=== PATIENT | male | born 1970 | race Caucasian/White ===

== ENCOUNTER 2020-10-12 14:47 | Inpatient (IN) | payer BC ==
--- OUTSIDE RECORDS SUMMARY | 2020-10-12 14:50 | XMS REPORT | Continuity of Care Document ---
:[address] [facility] t Address [address] [place] [address] Care Team Providers Name Role Phone Layne Gee MD Primary Care Physician Jakob ROBBINS Attending Clinician Rosangela SLAUGHTER Attending Clinician Unavailable Milton Hamm MD Attending Clinician Tess Liriano MD Attending Clinician Tiffany Jerez NP Attending Clinician MD Mukesh ROBERT Attending Clinician Unavailable Marleny Gutierrez RN Attending Clinician Unavailable Akilah Cortes MD Attending Clinician Jackie Blackmon MD Attending Clinician MADONNA Admitting Clinician Unavailable MD Floresita THORNTON Admitting Clinician Unavailable Payers Payer Name Policy Type Policy Effective Date Expiration Date [facility] ce Number [id number] CHOICE 2006 [place] PPO/FEDERAL 001 00:00:00 [employer] PPOxxxxxxxxxxx4 -Pr esentPPO Problems Condition Condition Condition Status Onset Resolution Last Treating Co mments Source Name Details Category Date Date Treatment Clinician Date Prostate Prostate Disease Active [place] cancer cancer 06-17 Method[facility] 00:00: st 00 Malignant Malignant Disease Active Overview: [place] neoplasm neoplasm 05-22 Formattin Met [facility] of of 00:00: g of this st prostate prostate 00 note might be different from the original. Added automatic ally from request for surgery [id number] Allergies, Adverse Reactions, Alerts This patient has no known allergies or adverse reactions. Family History Family Member Diagnosis Comments Start Date Stop Date Source Natural father Alzheimer's disease H orlando Wilson Natural mother Cancer [facility] thodist Social History Social Habit Start Date Stop Date Quantity [facility] Std Drinks [facility] Alcohol Binge Tobacco use and 2020-06-20 2020-06-[address] [facility] ethodist exposure 00:00:00 00:00:00 Alcohol intake 2020-06-20 2020-06-20 Lifetime [facility] thodist 00:00:00 00:00:00 non-drinker (finding) History SDOH 2020-04-18 2020-04-18 1 [place] Meth odist Alcohol Frequency 00:00:00 00:00:00 Sex Assigned At [address] [facility] ethodist 00:00:00 00:00:00 Smoking Status Start Date Stop Date Source Never smoker [place] Methodis t Medications Ordered Filled Start Stop Current Ordering Indication Dosage Frequency Signature Comments Components Source Medication Medication Date Date Medication? Clinician (SIG) Name Name tadalafiL 2020- No 5mg Q24H Take 1 [place] (CIALIS) 5 06-25-06 tablet (5 Met hodi MG tablet 00:00: 23:59 mg total) st 00 :00 by mouth daily as needed for erectile dysfunctio n for up to 30 days. HYDROcodone 2020- No acute pain 1{tbl} Q6H Take 1 [place] -acetaminop 06-25-06 tablet by Ok thodi hen (NORCO) 00:00: 23:[address] 7.5-325 mg 00 :00 every 6 per tablet (six) hours as needed for moderate pain for up to 30 days .acute pain. Max Daily Amount: 4 tablets losartan Yes Ty (Cozaar) 3-31 Method[facility] 100 MG 13:15: st tablet 29 atorvastati Yes Abdelrahmanto n n (LIPITOR) 3-31 [facility] 40 mg 13:15: st tablet 29 metoprolol Yes [place] tartrate 3-31 [facility] (LOPRESSOR) 13:15: st 25 mg 29 tablet levothyroxi Yes Estuardo moreno ne 06-19 [facility] (SYNTHROID) 13:15: st 175 mcg 29 tablet sennosides- 2020- No 1{tbl} QD Take 1 [place] docusate 06-19 tablet by Metho di sodium 00:00: 23:[address] (Senna with 00 :00 daily for Docusate 30 days. Sodium) 8.6-50 mg per tablet HYDROcodone 2020- acute pain 1{tbl} Q6H Take 1 [place] -acetaminop 06-19 tablet by krystina satya (NORCO) 00:00: 23:[address] 5-325 mg 00 :00 every 6 per tablet (six) hours as needed for moderate pain for up to 7 days .acute pain. Max Daily Amount: 4 tablets Vital Signs Vital Name Observation Time Observation Value Comments Source Body temperature 2020-06-19 11:10:00 37.39 April Abdelrahman Wilson Systolic blood 2020-06-19 07:41:27 120 mm[Hg] Estuardo Wilson pressure Diastolic blood 2020-06-19 07:41:27 78 mm[Hg] Tarah Wilson pressure Heart rate 2020-06-19 07:41:27 75 /min Ty Wilson Respiratory rate 2020-06-19 07:41:27 20 /min Abdelrahman Wilson Oxygen saturation in 2020-06-19 07:41:27 94 /min Ty Wilson Arterial blood by Pulse oximetry Body height 2020-06-17 06:01:00 186.7 cm Ty Wilson Body weight 2020-06-17 06:01:00 97.523 kg Ty Wilson BMI 2020-06-17 06:01:00 27.98 kg/m2 Ty Wilson Procedures Procedure Date / Time Performed Performing Clinician [facility] e PROSTATE SPECIFIC ANTIGEN 2020-07-18 00:00:00 Bebo Robert CBC HEMOGRAM 2020-06-19 09:52:00 Lucie Hamm CBC HEMOGRAM 2020-06-19 05:46:00 Lucie Hamm BASIC METABOLIC PANEL 2020-06-19 05:46:00 Lucie Hamm ESTIMATED GFR 2020-06-19 05:46:00 Lucie Hamm HC COMPLETE BLD COUNT 2020-06-18 02:17:00 Lucie Hamm W/AUTO DIFF COMPREHENSIVE METABOLIC 2020-06-18 02:17:00 Lucie Hamm PANEL MAGNESIUM LEVEL 2020-06-18 02:17:00 Lucie Hamm PHOSPHORUS LEVEL 2020-06-18 02:17:00 Lucie Hamm ESTIMATED GFR 2020-06-18 02:17:00 Lucie Hamm HEMATOCRIT 2020-06-17 09:47:00 Bebo Robert HEMOGLOBIN 2020-06-17 09:47:00 Bebo Robert SURGICAL PATHOLOGY 2020-06-17 09:16:00 Lucie Hamm REQUEST [place] AN ELECTIVE 2020-06-17 07:23:00 Asa Liriano hodjorge ENDOTRACHEAL AIRWAY Tess [place]ENT[place] ROBOTIC ASSISTED 2020-06-17 07:11:00 Bebo Robert LAPAROSCOPIC PROSTATECTOMY W/BPLND ABO/RH 2020-06-17 06:00:00 Bebo Robert URINE CULTURE 2020-06-12 10:07:00 Magdi Thornton odjorge TYPE AND SCREEN 2020-06-12 09:15:00 Magdi Thornton BASIC METABOLIC PANEL 2020-06-12 08:48:00 Magdi Thornton ESTIMATED GFR 2020-06-12 08:48:00 Magdi Thornton URINALYSIS SCREEN AND 2020-06-12 08:48:00 Magdi Thornton MICROSCOPY, WITH REFLEX TO CULTURE CBC HEMOGRAM 2020-06-12 08:48:00 Magdi Thornton COVID-19 QUALITATIVE 2020-06-12 07:57:00 Magdi Thornton RT-PCR MRI PROSTATE WWO CONTRAST 2020-06-04 10:32:45 Bebo Robert Ho ju [facility] ESTIMATED GFR 2020-06-04 07:57:00 Bebo Robert Meth odist POC CREATININE 2020-06-04 07:57:00 Bebo Robert Meth odist NM BONE SCAN WHOLE BODY 2020-05-03 10:24:[address] ABDOMEN W WO CONTRAST 2020-05-03 08:28:36 Moris Blackmon PELVIS W WO CONTRAST Plan of Care Planned Activity Planned Date Details Comments Source Future Scheduled 2020-10-20 INFLUENZA VACCINE [place] [facility] 00:00:00 [code = INFLUENZA VACCINE] Future Scheduled 2020 COLONOSCOPY SCREENING [place] [facility] 00:00:00 [code = COLONOSCOPY SCREENING] Future Scheduled 2020 SHINGLES VACCINES [place] [facility] 00:00:00 (#1) [code = SHINGLES VACCINES (#1)] Future Scheduled 1988 Hepatitis C screening [place] [facility] 00:00:00 (procedure) [code = 868915906] Future Scheduled 1982 COVID-19 VACCINE (1) Kaylee ston [facility] Test 00:00:00 [code = COVID-19 VACCINE (1)] Encounters Start End Encounter Admission Attending Care Care Encounter Source Date/Time Date/Time Type Type Clinicians Facility Department ID 2020-07-24 2020-07-24 Outpatient EKERUO, [facility] [id number] [place] 00:00:00 00:00:00 BEBO [address] 2020-06-25 2020-06-25 Outpatient EKERUO, [facility] [id number] [place] 00:00:00 00:00:[address] BEBO [address] 2020-06-17 2020-06-19 Outpatient THAMPOE, [facility] [id number] [place] 00:00:00 00:00:00 LUCIE [address] 2020-06-12 2020-06-12 Outpatient EKERUO, [facility] [id number] [place] 00:00:00 00:00:00 BEBO [address] 2020-06-12 2020-06-12 Outpatient EKERUO, [facility] [id number] [place] 00:00:00 00:00:00 BEBO 176 Method i 2020-06-04 2020-06-04 Outpatient JAKOB [facility] [id number] [place] 00:00:00 00:00:00 BEBO 573 Method i 2020-05-22 2020-05-22 Outpatient AVINASH [facility] [id number] [place] 00:00:00 00:00:00 JAMIE 389 Method i 2020-05-03 2020-05-03 Outpatient TRUONG [facility] [id number] [place] 00:00:00 00:00:00 MORIS 497 Method i 2020-05-03 2020-05-03 Outpatient TRUONG [facility] [id number] [place] 00:00:00 00:00:00 MORIS 499 Method i 2020-05-03 2020-05-03 Outpatient TRUONG [facility] [id number] [place] 00:00:00 00:00:00 MORIS 498 Method i 2020-04-18 2020-04-18 Outpatient TRUONG [facility] [id number] [place] 00:00:00 00:00:00 MORIS 049 Method i Results Test Description Test Time Test Comments Results Result Comments Source Prostate specific antigen 2020-07-19 09:03:00 Test Item Value Reference Range Interpretation Comme nts PSA (test code = 0.1 ng/mL 0.0-4.0 Jackie ECLIA methodology.According 2857-1) to the [place] [employer], Se rum PSA shoulddecrease and remain at undetectable le vels after radicalprostate ctomy. The AUA defines biochem ical recurrence as an initialPSA v alue 0.2 ng/mL or greater followe d by a subsequent confirmatoryPSA value 0.2 ng/mL or greater.Valu es obtained with different assay methods or kits cannot be usedi nterchangeably. Results cannot be interpreted as absolute eviden ceof the presence or absence of m alignant disease. MANUELA (test code = Performed at: ) [facility] [id number] [place], [place] [id number] Director: Rafael Parks MD, Phone: [phone] Ty Smithurgical pathology [id number] 16:55:39 Test Item Value Reference Range Interpretation Comments Case number (test [id number] code = 2051759) Surgical pathology See link below for PDF report (test code = Lab Report 2255) Result status (test This is Supplemental code = 9782086) Report for [id number] [place] [id number] 07:23:00Giselle Elliott 06/17/2020 8:11 AMAirway Date/Time: 06/17/2020 7:23 AM Location: OR Performed by: other staffResident/LOOPER OPERATOR/AA: Higinio Watson CRNAOther Staff: Giselle ElliottAuthorized by: Asa Liriano MD Urgency: ElectiveDifficult Airway: No Preoxygenated with 100% O2: Yes C-spine Precautions Maintained Throughout: Yes Mask Ventilation: Easy maskFinal Airway Type: Endotracheal airwayFinal Endotracheal Airway: ETTCuffed: Yes Technique Used: Direct laryngoscopyDevices/Methods Used in Placement: Intubating styletInsertion Site: OralBlade Type: MillerLaryngoscopeBlade/Videolaryngoscope Blade Size: 2ETT Size (mm): 8.0Cuff at minimum occlusion pressure: Yes Measured from: LipsETT to Lips (cm): 24Placement Verified by: CO2 detection and direct visualization Laryngoscopic view: Grade IIa - partial view of glottisRapid Sequence Induction (RSI): No ModifiedRSI: No Number of Attempts at Approach: 1 Soft tissue and dentition remained intact, according to preoperative examination.Ty WilsonUrine [id number] 13:55:46 Test Item Value Reference Range Interpretation Comments Urine culture growth after Specimen isolate (test 24 hours InformationSpe [facility] code = 52716-7) Source: Urin eSpecimen Site: Clean cat ch [place] HckomxpiuHTHS-GqF-6 (COVID-19) RNA [Presence] in Respiratory specimen by FANNY with probe [id number] 19:20:48 Test Item Value Reference Range Interpretation Comments SARS-CoV-2 (COVID-19) RNA Not detected Not-Detected [Presence] in Respiratory specimen by FANNY with probe detection (test code = 61738-9) Urinalysis screen and microscopy, with reflex to [id number] 10:08:48 Test Item Value Reference Range Interpretation Comments Specimen site (test Clean catch code = 3598586) Color, UA (test code = Yellow 5778-6) Appearance, UA (test Sl Cloudy code = 5767-9) Specific gravity, UA 1.020 1.001-1.035 (test code = 5811-5) pH, UA (test code = 5.0 5.0-8.5 5803-2) Protein, UA (test code Negative Negative = 10895-2) Glucose, UA (test code Negative Negative = 56558-1) Ketones, UA (test code Negative Negative = 2514-8) Bilirubin, UA (test Negative Negative code = 5770-3) Blood, UA (test code = Negative Negative 5794-3) Nitrite, UA (test code Negative Negative = 5802-4) Urobilinogen, UA (test <2.0 <2.0 code = 43932-1) Leukocyte esterase, UA Negative Negative (test code = 5799-2) WBC, UA (test code = 6 See_Comment H [Autom ated 5821-4) message] The sy stem which generated this result transmitted reference range : 0 - 1 /HPF. The reference range was not used to interpret this result as normal/abnormal . RBC, UA (test code = None seen See_Comment [Autom ated 12934-3) message] The sy stem which generated this result transmitted reference range : 0 - 5 /HPF. The reference range was not used to interpret this result as normal/abnormal . Bacteria, UA (test code None seen None seen = 62728-5) Yeast, UA (test code = None seen 86397-2) Yeast with None seen pseudohyphae, UA (test code = 21024-9) Lab Interpretation Abnormal (test code = 98442-3) [facility] Prostate Wwo [id number] 22:02:21Hm Interface, Radiology Results 06/04/2020 10:05 PM CDT EXAMINATION: MRI PROSTATE WWO CONTRASTCLINICAL HISTORY: 49 years Male C61 Malignant neoplasm of prostate, prostate cancerCOMPARISON: None.TECHNIQUE: Using a pelvic phased array coil, multiplanar, multisequence MRI of the pelvis was performed with a prostate- specific protocol with and without contrast. Diffusion weighted images and dynamic contrast enhanced images were performed. The examination was performed using a 3T magnet. IMAGE QUALITY: The image quality is satisfactory.FINDINGS:1. Size: The prostate gland measures 3.8 x 2.8 x 3.5 cm. Calculated prostatic volume (ellipsoid model) is 20 cc. 2. Central gland: There is BPH involving the transition zone without a significant lesion identified.3. Peripheral zone: 2.1 x 1.1 cm T2 hypointense lesion posterolaterally at the left base and midgland (series 5 image 15) with corresponding diffusion restriction and early en hancement consistent with malignancy (PI-RADS 5).4. Seminal vesicles: Equivocal for early invasion on the left side (se 7, im 13).5. Extracapsular extension: Broad capsular abutment and mild bulging ishighly suspicious for intraprostatic extension.6: Bladder: Normal.7. Lymph nodes: No suspicious lymph nodes.8. Musculoskeletal: No focal marrow replacing abnormality.9. Other: Nonspecific trace pelvic free fluid. Sigmoid colon diverticulosis.IMPRESSION:2.1 x 1.1 cm left base/midgland PZ with evidence of extraprostatic extension and possible early left seminal vesicle invasion, PI-RADS 5.No lymphadenopathy.PI-RADS score: 5 PI-RADS score: The presence of a significant prostate cancer is:PI-RADS 1: V brooke low (Highly unlikely)PI-RADS 2: Low (Unlikely)PI-RADS 3: Intermediate (Equivocal)PI-RADS 4: High(Likely)PI-RADS 5: Very High (Highly likely)(All PI- RADS 3, 4 and 5 lesions are marked in DynaCAD for possible fusion biopsy)[id number] MethodistCT Abdomen W Wo Contrast Pelvis W Wo [id number] 13:29:39Hm Interface, Radiology Results 05/03/2020 1:32 PM CST EXAMINATION: CT ABDOMEN W WO CONTRAST PELVIS W WO CONTRASTCLINICAL HISTORY: R97.20 Elevated prostate specific antigen (PSA), C61 Malignant neoplasm of prostate, prostate cancer screeningCOMPARISON: None.TECHNIQUE:CT of the abdomen and pelvis performed with IV contrast. CT imaging was performed with iterative reconstruction techniques and/or automated exposure control to reduce radiation dose. FINDINGS:1.The prostate gland is not enlarged. There is no gross extraprostatic tumor extension. The seminal vesicles are symmetric.2.No pelvic or retroperitoneal lymphadenopathy is seen.3.The kidneys, ureters, and urinary bladder are normal.4.No small or large bowel dilation, inflammation, or suspicious wall thickening is seen. The stomach is normal. The appendix appears to have been removed.5.The liver, gallbladder, spleen, pancreas, and adrenals are normal.6.No vascular abnormality is seen.7.No skeletal metastasis is seen. There is a benign hemangioma in the T12 vertebral body. An 8 mm sclerotic focus in the right iliac bone is most consistent with a bone island.IMPRESSION:No metastatic disease.[id number] Bone Scan Whole Body 2020-05-03 11:18:59Hm Interface, Radiology Results 05/03/2020 11:22 AM CST PROCEDURE: NM BONE SCAN WHOLE BODYINDICATION: R97.20 Elevated prostate specific antigen (PSA), prostate cancer staging. COMPARISON: CT abdomen and pelvis May 03, 2020.TECHNIQUE: The patient was injected with 25 millicuries of xsicntcrbl-26c-PSR intravenously, followed 3 hours later by whole-body scanning in the anterior and posterior projections. FINDINGS: Mild degenerative uptake in the shoulders and spine. Physiologic renal excretion. Probable bone island in the right iliac bone. IMPRESSION: No scintigraphic evidence of osseous metastatic disease.[facility]-[id number] and approved by vice president of recruiting/fellow: Martinez Stroud M.D.I, Wil Holt MD, personally reviewed the images and resident's/fellow's findings and agree with the final report. Ty Wilson
[2020-10-12] MEDS ORDERED: MORPHINE 4 MG/ML SYR ONE (18:02)
[2020-10-12] MEDS ORDERED: NA CHLORIDE 0.9% 1,000 ML ONE ×2 (18:03→19:41)
[2020-10-12] MEDS ORDERED: ONDANSETRON 4 MG/2 ML VIAL ONE ×3 (18:03→19:40)
[2020-10-12 18:06] LABS: Urine Blood Negative (Negative); Urine Glucose Negative (Negative); Urine Protein Negative (Negative); Urine pH 6.5 (5.0-7.0)
[2020-10-12 18:19] LABS: Absolute Lymphocytes (CBC) 1.1 K/uL (0.7-4.9); Basophils % 0.5 % (0-1.3); Lymphocytes % 10.7 % (15.3-44.8); RBC Red Blood Cell Count 4.95 M/uL (4.33-5.43)
[2020-10-12 18:30] LABS: ALT/SGPT 47 U/L (12-78); AST/SGOT 27 U/L (15-37); Albumin 4.2 g/dL (3.4-5.0); Alkaline Phosphatase 82 U/L (45-117); BUN Blood Urea Nitrogen 10 mg/dL (7-18); Bicarbonate 29 mmol/L (21-32); Bilirubin Direct 0.1 mg/dL (0-0.2); Bilirubin Total 0.6 mg/dL (0.2-1.0); Glucose Level 101 mg/dL (74-106); Lipase 158 U/L (73-393); Potassium 4.2 mmol/L (3.5-5.1); Protein, Total 7.9 g/dL (6.4-8.2); Sodium Level 139 mmol/L (136-145)
--- NOTE | 2020-10-12 18:36 | RAD REPORT ---
EXAM DESCRIPTION: CT - Abdomen Pelvis W Contrast - 10/12/2020 6:14 pm CLINICAL HISTORY: Abdominal pain COMPARISON: none. TECHNIQUE: Computed axial tomography of the abdomen pelvis was obtained. 100 cc Isovue-300 was admin istered intravenously. Oral contrast was not requested which limits evaluation of bowel. All CT scans are performed using dose optimization technique as appropriate and may include automated exposure control or mA/KV adjustment according to patient size. FINDINGS: The liver, spleen, pancreas, adrenal and kidneys appear unremarkable. Diverticula stem from the colon. Mild to moderate stranding adjacent to the proximal sigmoid colon. N o free air. No abscess Small umbilical hernia IMPRESSION: Mild to moderate sigmoid diverticulitis
--- NOTE | 2020-10-12 19:04 | EDPHYS ---
Physician Documentation [facility] Name: Fab Hinojosa Age: 50 yrs Sex: Male : 1970 Arrival Date: 10/12/2020 Time: 14:51 Bed 23 Private MD: EILEEN Physician Clifford Zamudio HPI: 10/12 17:36 This 50 yrs old Male presents to ER via Ambulatory with complaints of agustin Abdominal Pain. 17:36 The patient presents with abdominal pain in the lower abdomen. Onset: The agustin symptoms/episode began/occurred 1 day(s) ago. The symptoms do not radiate. Associated signs and symptoms: none. The symptoms are described as crampy. Modifying factors: The symptoms are alleviated by remaining still, the symptoms are aggravated by movement, pressure, walking. Severity of pain: At its worst the pain was moderate in the emergency department the pain is unchanged. The patient has not experienced similar symptoms in the past. Historical: - Allergies: 15:33 No Known Allergies; kg - Home Meds: 15:33 Synthroid 175 mcg oral tab 1 tab once daily for hypothyroidism [Active]; losartan 100 kg mg oral tab 1 tab once daily [Active]; metoprolol tartrate 25 mg Oral tab 1 tab 2 times per day [Active]; - PMHx: 15:33 Hypertensive disorder; Hypothyroidism; Hypercholesterolemia; Prostate ca; kg - PSHx: 15:35 Appendectomy; prostate removed; kg - Immunization history:: Adult Immunizations not up to date, Client reports receiving the 2nd dose of the Covid vaccine, Date received: August 14, 2020. - Social history:: Smoking status: Patient denies any tobacco usage or history of. Patient uses alcohol, occasionally. - Family history:: not pertinent. ROS: 17:36 Constitutional: Negative for fever, chills, and weight loss, Eyes: Negative for injury, agustin pain, redness, and discharge, ENT: Negative for injury, pain, and discharge, Neck: Negative for injury, pain, and swelling, Cardiovascular: Negative for chest pain, palpitations, and edema, Respiratory: Negative for shortness of breath, cough, wheezing, and pleuritic chest pain, Back: Negative for injury and pain, : Negative for injury, bleeding, discharge, and swelling, MS/Extremity: Negative for injury and deformity, Skin: Negative for injury, rash, and discoloration, Neuro: Negative for headache, weakness, numbness, tingling, and seizure, Psych: Negative for depression, anxiety, suicide ideation, homicidal ideation, and hallucinations, Allergy/Immunology: Negative for hives, rash, and allergies, Endocrine: Negative for neck swelling, polydipsia, polyuria, polyphagia, and marked weight changes, Hematologic/Lymphatic: Negative for swollen nodes, abnormal bleeding, and unusual bruising. 17:36 Abdomen/GI: Positive for abdominal pain, of the anterior aspect of left lateral abdomen, posterior aspect of left lateral abdomen and left lower quadrant. Exam: 17:36 Constitutional: This is a well developed, well nourished patient who is awake, alert, agustin and in no acute distress. Head/Face: Normocephalic, atraumatic. Eyes: Pupils equal round and reactive to light, extra-ocular motions intact. Lids and lashes normal. Conjunctiva and sclera are non-icteric and not injected. Cornea within normal limits. Periorbital areas with no swelling, redness, or edema. ENT: Nares patent. No nasal discharge, no septal abnormalities noted. Tympanic membranes are normal and external auditory canals are clear. Oropharynx with no redness, swelling, or masses, exudates, or evidence of obstruction, uvula midline. Mucous membranes moist. Neck: Trachea midline, no thyromegaly or masses palpated, and no cervical lymphadenopathy. Supple, full range of motion without nuchal rigidity, or vertebral point tenderness. No Meningismus. Chest/axilla: Normal chest wall appearance and motion. Nontender with no deformity. No lesions are appreciated. Cardiovascular: Regular rate and rhythm with a normal S1 and S2. No gallops, murmurs, or rubs. Normal PMI, no JVD. No pulse deficits. Respiratory: Lungs have equal breath sounds bilaterally, clear to auscultation and percussion. No rales, rhonchi or wheezes noted. No increased work of breathing, no retractions or nasal flaring. Back: No spinal tenderness. No costovertebral tenderness. Full range of motion. Male : Normal genitalia with no discharge or lesions. Skin: Warm, dry with normal turgor. Normal color with no rashes, no lesions, and no evidence of cellulitis. MS/ Extremity: Pulses equal, no cyanosis. Neurovascular intact. Full, normal range of motion. Neuro: Awake and alert, GCS 15, oriented to person, place, time, and situation. Cranial nerves II-XII grossly intact. Motor strength 5/5 in all extremities. Sensory grossly intact. Cerebellar exam normal. Normal gait. Psych: Awake, alert, with orientation to person, place and time. Behavior, mood, and affect are within normal limits. 17:36 Abdomen/GI: Inspection: abdomen appears normal, Bowel sounds: normal, active, all quadrants, Palpation: moderate abdominal tenderness, in the anterior aspect of left lateral abdomen and left lower quadrant, Liver: no appreciated palpable abnormalities, Hernia: not appreciated. Vital Signs: 15:31 BP 135 / 89; Pulse 78; Resp 20; Temp 98.4(O); Pulse Ox 99% on R/A; Weight 97.52 kg (R); kg Height 6 ft. 1 in. (185.42 cm) (R); Pain 7/10; 18:00 BP 125 / 84; Pulse 77; Resp 15; Pulse Ox 100% ; jl7 19:30 BP 154 / 93; Pulse 84; Resp 16 S; Pulse Ox 99% on R/A; Pain 3/10; bb 15:31 Body Mass Index 28.37 (97.52 kg, 185.42 cm) kg MDM: 17:27 Patient medically screened. [facility] 17:39 Differential diagnosis: bowel obstruction, diverticulitis, gastroesophageal reflux agustin disease, Irritable bowel syndrome, Mesenteric ischemia or infarction, non-specific abd pain, pancreatitis, Peptic Ulcer Disease, Peritonitis, Pyelonephritis, urinary tract infection. Data reviewed: vital signs, nurses notes, lab test result(s), radiologic studies, CT scan. Data interpreted: campus monitor: rate is 78 beats/min, rhythm is regular, Pulse oximetry: on room air is 9 %. Test interpretation: by ED physician or midlevel provider:. Counseling: I had a detailed discussion with the patient and/or guardian regarding: the historical points, exam findings, and any diagnostic results supporting the discharge/admit diagnosis, lab results, radiology results. 10/12 17:36 Order name: Basic Metabolic Panel [facility] 10/12 17:36 Order name: CBC with Diff; Complete Time: 18:59 [facility] 10/12 17:36 Order name: Hepatic Function; Complete Time: 18:59 [facility] 10/12 17:36 Order name: Lipase; Complete Time: 18:59 [facility] 10/12 17:36 Order name: Urine Culture [facility] 10/12 17:36 Order name: Basic Metabolic Panel; Complete Time: 18:59 [facility] 10/12 17:36 Order name: CT Abd/Pelvis - IV Contrast Only; Complete Time: 18:59 [facility] 10/12 18:06 Order name: Urine Dipstick-Ancillary [facility] 10/13 02:52 Order name: Comprehensive Metabolic Panel [facility] 10/13 02:52 Order name: T4 Free [facility] 10/13 02:52 Order name: Thyroid Stimulating Hormone [facility] 10/13 02:52 Order name: Liver (Hepatic) Function [facility] 10/13 05:45 Order name: CBC with Automated Diff [facility] 10/13 11:44 Order name: Urinalysis [facility] 10/12 17:36 Order name: IV Saline Lock; Complete Time: 18:10 [facility] 10/12 17:36 Order name: Labs collected and sent; Complete Time: 18:10 [facility] 10/12 17:36 Order name: Urine Dipstick-Ancillary (obtain specimen); Complete Time: 18:10 [facility] Administered Medications: 17:53 Drug: NS 0.9% 1000 ml Route: IV; Rate: 1 bolus; Site: left antecubital; 7 19:00 Follow up: Response: No adverse reaction; IV Status: Completed infusion; IV Intake: jl 1000ml 17:55 Drug: morphine 4 mg Route: IVP; Site: left antecubital; jl7 18:15 Follow up: Response: No adverse reaction; Pain is decreased 7 17:55 Drug: Zofran (Ondansetron) 4 mg Route: IVP; Site: left antecubital; 7 18:55 Follow up: Response: No adverse reaction [facility] 19:28 Drug: Rocephin (cefTRIAXone) 2 grams Route: IV; Rate: per protocol; Site: left bb antecubital; 19:33 Follow up: IV Status: Completed infusion; IV Intake: 10ml 19:38 Drug: Dilaudid (HYDROmorphone) 1 mg {Note: RASS 0.} Route: IVP; Site: left antecubital; 20:15 Follow up: Response: No adverse reaction; RASS: Alert and Calm (0) 19:50 Drug: Zosyn (piperacillin-tazobactam) 3.375 grams Route: IVPB; Infused Over: 60 mins; bb Site: left antecubital; 20:50 Follow up: IV Status: Completed infusion; IV Intake: 100ml bb 19:50 Drug: Zofran (Ondansetron) 4 mg Route: IVP; Site: left antecubital; bb 20:10 Follow up: Response: No adverse reaction bb 19:50 Drug: NS 0.9% 500 ml Route: IV; Rate: bolus; Site: left antecubital; bb 20:30 Follow up: IV Status: Completed infusion; IV Intake: 500ml bb 21:17 Drug: NS 0.9% 1000 ml Route: IV; Rate: 125 ml/hr; Site: left antecubital; bb 21:17 Follow up: IV Status: Infusion continued upon admission bb Disposition Summary: 10/12/20 19:03 Hospitalization Ordered Hospitalization Status: Inpatient Admission agustin Condition: Stable agustin Problem: new agustin Symptoms: have improved agustin Bed/Room Type: Standard agustin Provider: Usama Cruz(10/12/20 19:24) josé Location: Telemetry/MedSurg (Inpatient)(10/13/20 12:16) eb Room Assignment: 219(10/13/20 12:16) eb Diagnosis - Lower abdominal pain, unspecified - left lower quadrant agustin - Diverticulitis of both small and large intestine without perforation or abscess agustin without bleeding - proximal Sigmoid Forms: - Medication Reconciliation Form agustin - SBAR form agustin Signatures: Dispatcher [employer] EDClifford Pineda MD MD cha Ballard, Brenda RN RN Tim Oseguera FNP-C FNP-Cla1 Kristyn Gomez, RN RN Ángel Jim RN RN jl7 Michelle Best Kristen RN RN kg Corrections: (The following items were deleted from the chart) 19: 19:03 Alexis Fang cha la1 10/13 00:22 10/12 19:03 Telemetry/MedSurg (Inpatient) [facility] 10/13 00:22 10/12 19:03 agustin 10/13 12:16 00:22 [facility] ER HOLD eb 12:16 00:22 ERHOLD- eb
--- NOTE | 2020-10-12 19:04 | ER ---
Nurse's Notes [facility] Name: Fab Hinojosa Age: 50 yrs Sex: Male : 1970 Arrival Date: 10/12/2020 Time: 14:51 Bed 23 Private MD: Diagnosis: Lower abdominal pain, unspecified-left lower quadrant;Diverticulitis of both small and large intestine without perforation or abscess without bleeding-proximal Sigmoid Presentation: 10/12 15:31 Chief complaint: Patient states: Left lower abdominal pain x 1 day. Denies, nausea, kg vomiting, diarrhea. Chief complaint:. Coronavirus screen: Client denies travel out of the [place] in the last 14 days. At this time, unable to obtain information related to travel outside the [place] Coronavirus screen: Client denies travel out of the [place] in the last 14 days. At this time, unable to obtain information related to travel outside the [place] At this time, the client does not indicate any symptoms associated with coronavirus-19. Ebola Screen: Patient negative for fever greater than or equal to 101.5 degrees Fahrenheit, and additional compatible Ebola Virus Disease symptoms Patient denies exposure to infectious person. Patient denies travel to an Ebola-affected area in the 21 days before illness onset. Initial Sepsis Screen: Does the patient meet any 2 criteria? No. Patient's initial sepsis screen is negative. Does the patient have a suspected source of infection? No. Patient's initial sepsis screen is negative. Risk Assessment: Do you want to hurt yourself or someone else? Patient reports no desire to harm self or others. Onset of symptoms was October 11, 2020. 15:31 Method Of Arrival: Ambulatory kg 15:31 Acuity: ANNELIESE 3 kg Triage Assessment: 15:35 General: Appears in no apparent distress. Behavior is calm, cooperative, appropriate kg for age, quiet. Pain: Complains of pain in left lower quadrant. GI: Reports lower abdominal pain. Historical: - Allergies: 15:33 No Known Allergies; kg - Home Meds: 15:33 Synthroid 175 mcg oral tab 1 tab once daily for hypothyroidism [Active]; losartan 100 kg mg oral tab 1 tab once daily [Active]; metoprolol tartrate 25 mg Oral tab 1 tab 2 times per day [Active]; - PMHx: 15:33 Hypertensive disorder; Hypothyroidism; Hypercholesterolemia; Prostate ca; kg - PSHx: 15:35 Appendectomy; prostate removed; kg - Immunization history:: Adult Immunizations not up to date, Client reports receiving the 2nd dose of the Covid vaccine, Date received: August 14, 2020. - Social history:: Smoking status: Patient denies any tobacco usage or history of. Patient uses alcohol, occasionally. - Family history:: not pertinent. Screenin:37 Abuse screen: Denies threats or abuse. Denies injuries from another. Nutritional kg screening: No deficits noted. Tuberculosis screening: No symptoms or risk factors identified. Fall Risk None identified. No fall in past 12 months (0 pts). No secondary diagnosis (0 pts). IV access (20 points). Ambulatory Aid- None/Bed Rest/Nurse Assist (0 pts). Gait- Normal/Bed Rest/Wheelchair (0 pts) Mental Status- Oriented to own ability (0 pts). Total Todd Fall Scale indicates No Risk (0-24 pts). Assessment: 17:30 General: Appears in no apparent distress. uncomfortable, Behavior is calm, cooperative, jl7 appropriate for age. Pain: Complains of pain in left lower quadrant Pain does not radiate. Pain currently is 7 out of 10 on a pain scale. Pain began suddenly, 1 day ago. Is continuous. Neuro: Level of Consciousness is awake, alert, obeys commands, Oriented to person, place, time, situation. Cardiovascular: Patient's skin is warm and dry. Respiratory: Airway is patent Respiratory effort is even, unlabored, Respiratory pattern is regular, symmetrical. GI: Bowel sounds present X 4 quads. Abd is soft X 4 quads Abdomen is tender to palpation in left lower quadrant Guarding noted in left lower quadrant. : Denies burning with urination, pain with urination. Derm: Skin is pink, warm \T\ dry. 19:30 Reassessment: Patient is alert, oriented x 3, equal unlabored respirations, skin bb warm/dry/pink. IV to L AC patent, intact with fluids infusing. Tim Meyer TELEPHONE QUOTATION CLERK at bedside for discussion of findings and recommendations pt to be admitted for further evaluation and treatment pt verbalized understanding of and agrees to plan of care. 21:17 Reassessment: Patient is alert, oriented x 3, equal unlabored respirations, skin bb warm/dry/pink. pt ambulated with steady gait to ED hold room bed 23 and report give to aCrol GONZALEZ. Vital Signs: 15:31 BP 135 / 89; Pulse 78; Resp 20; Temp 98.4(O); Pulse Ox 99% on R/A; Weight 97.52 kg (R); kg Height 6 ft. 1 in. (185.42 cm) (R); Pain 7/10; 18:00 BP 125 / 84; Pulse 77; Resp 15; Pulse Ox 100% ; jl7 19:30 BP 154 / 93; Pulse 84; Resp 16 S; Pulse Ox 99% on R/A; Pain 3/10; bb 15:31 Body Mass Index 28.37 (97.52 kg, 185.42 cm) kg ED Course: 14:51 Patient arrived in ED. cl3 15:31 Keisha Dangelo, RN is Primary Nurse. kg 15:33 Triage completed. kg 15:37 Patient has correct armband on for positive identification. kg 17:27 Clifford Zamudio MD is Attending Physician. agustin 17:28 Primary Nurse role handed off by Keisha Dangelo, LISA jl7 17:28 Ángel Madison, LISA is Primary Nurse. jl7 18:00 Pulse ox on. NIBP on. jl7 18:00 Initial lab(s) drawn, by ca, sent to lab. Urine collected: clean catch specimen, clear. jl7 Inserted saline lock: 20 gauge in left antecubital area, using aseptic technique. Blood collected. 18:14 CT Abd/Pelvis - IV Contrast Only In Process Unspecified. EDMS 19:02 Alexis Fang DO is Hospitalizing Provider. agustin 19:23 Usama Cruz MD is Hospitalizing Provider. la1 19:53 No provider procedures requiring assistance completed. Patient admitted, IV remains in bb place. 21:18 Patient placed in room 25 for ED hold. bb Administered Medications: 17:53 Drug: NS 0.9% 1000 ml Route: IV; Rate: 1 bolus; Site: left antecubital; jl7 19:00 Follow up: Response: No adverse reaction; IV Status: Completed infusion; IV Intake: jl7 1000ml 17:55 Drug: morphine 4 mg Route: IVP; Site: left antecubital; jl7 18:15 Follow up: Response: No adverse reaction; Pain is decreased jl7 17:55 Drug: Zofran (Ondansetron) 4 mg Route: IVP; Site: left antecubital; jl7 18:55 Follow up: Response: No adverse reaction jl7 19:28 Drug: Rocephin (cefTRIAXone) 2 grams Route: IV; Rate: per protocol; Site: left bb antecubital; 19:33 Follow up: IV Status: Completed infusion; IV Intake: 10ml bb 19:38 Drug: Dilaudid (HYDROmorphone) 1 mg {Note: RASS 0.} Route: IVP; Site: left antecubital; bb 20:15 Follow up: Response: No adverse reaction; RASS: Alert and Calm (0) bb 19:50 Drug: Zosyn (piperacillin-tazobactam) 3.375 grams Route: IVPB; Infused Over: 60 mins; bb Site: left antecubital; 20:50 Follow up: IV Status: Completed infusion; IV Intake: 100ml bb 19:50 Drug: Zofran (Ondansetron) 4 mg Route: IVP; Site: left antecubital; bb 20:10 Follow up: Response: No adverse reaction bb 19:50 Drug: NS 0.9% 500 ml Route: IV; Rate: bolus; Site: left antecubital; bb 20:30 Follow up: IV Status: Completed infusion; IV Intake: 500ml bb 21:17 Drug: NS 0.9% 1000 ml Route: IV; Rate: 125 ml/hr; Site: left antecubital; bb 21:17 Follow up: IV Status: Infusion continued upon admission bb Intake: 19:00 IV: 1000ml; Total: 1000ml. jl7 19:33 IV: 10ml; Total: 1010ml. bb 20:30 IV: 500ml; Total: 1510ml. bb 20:50 IV: 100ml; Total: 1610ml. bb Outcome: 19:03 Decision to Hospitalize by Provider. agustin 19:30 Instructed on the need for admit. bb 21:18 Admitted to ER Hold. Please see [facility] for further documentation. bb 21:18 Condition: stable 10/13 13:52 Patient left the ED. eb Signatures: Dispatcher [employer] Clifford Inman MD MD cha Ballard, Brenda, RN RN Tim Oseguera, TIMBER SPOTTER-C TIMBER SPOTTER-Cla1 Ángel Madison RN RN jl7 Michelle Best Charde cl3 Keisha Dangelo RN RN kg Corrections: (The following items were deleted from the chart) 10/12 21:19 21:17 Reassessment: Patient is alert, oriented x 3, equal unlabored respirations, skin bb warm/dry/pink. pt ambulated with steady gait to ED hold room bed 25 and report give to Carol motley
--- NOTE | 2020-10-12 19:39 | P.HP ---
Certification for Inpatient Patient admitted to: Observation With expected LOS: <2 Midnights Patient will require the following post-hospital care: None Practitioner: I am a practitioner with admitting privileges, knowledge of patient current condition, hospital course, and medical plan of care. Services: Services provided to patient in accordance with Admission requirements found in Title 42 Section 412.3 of the Code of Federal Regulations Patient History Date of Service: 10/12/20 Primary Care Provider: Dr. Tillman Reason for admission: Acute sigmoid diverticulitis History of Present Illness: 50-year-old male with history of hypertension, hyperlipidemia, hypothyroidism, history of prostate cancer presents emergency department for left lower quadrant abdominal pain. Patient reports worsening pain over the course of the last 24 hours, denies any nausea vomiting or diarrhea. Patient was evaluated in the emergency department, labs significant for white blood cell count 10.0, CT abdomen pelvis demonstrates mild to moderate sigmoid diverticulitis without perforation/abscess. Patient with moderate pain still, ED progress is to admit under observation for further evaluation and management. When I saw the patient in the ER he was awake, alert, oriented x3. Patient with mild to moderate tenderness left lower quadrant. Will admit for further evaluation and management. - Past Medical/Surgical History -: Hypertension -: Hyperlipidemia -: Hypothyroidism -: Prostate cancer -: Prostatectomy -: Appendectomy Psychosocial/ Personal History: Employed, lives with family - Family History Father -: Other (see notes) (Alzheimer's) Mother -: Cancer - Social History Smoking Status: Never smoker Alcohol use: Yes CD- Drugs: No Caffeine use: No Place of Residence: Home Review of Systems 10-point ROS is otherwise unremarkable Gastrointestinal: Abdominal Pain, As per HPI Physical Examination - Physical Exam General: Alert, In no apparent distress, Oriented x3 HEENT: Atraumatic, PERRLA, Mucous membr. moist/pink, EOMI, Sclerae nonicteric Neck: Supple, 2+ carotid pulse no bruit, No LAD, Without JVD or thyroid abnormality Respiratory: Clear to auscultation bilaterally, Normal air movement Cardiovascular: Regular rate/rhythm, Normal S1 S2 Gastrointestinal: Normal bowel sounds, No rebound, No guarding, Tenderness (Mild left lower quadrant abdominal tenderness) Musculoskeletal: No tenderness Integumentary: No rashes Neurological: Normal speech, Normal strength at 5/5 x4 extr, Normal tone, Normal affect Lymphatics: No axilla or inguinal lymphadenopathy - Studies Laboratory Data (last 24 hrs) 10/12/20 17:50: WBC 10.50, Hgb 14.5, Hct 43.0, Plt Count 153 10/12/20 17:50: Sodium 139, Potassium 4.2, BUN 10, Creatinine 0.85, Glucose 101, Total Bilirubin 0.6, AST 27, ALT 47, Alkaline Phosphatase 82, Lipase 158 Assessment and Plan - Plan Assessment: Moderate acute sigmoid diverticulitis Hypertension, hyperlipidemia, hypothyroidism Plan: Moderate acute sigmoid diverticulitis: N.p.o. aside from sips of water, ice chips this evening, continue with IV Cipro/Flagyl. As needed pain medications, advance diet as tolerated. Serial abdominal exams. Anticipate clinical improvement over the course next 24 to 48 hours. Patient instructed that he will need to have an outpatient colonoscopy and follow-up with his primary care doctor following hospitalization. Hypertension, hyperlipidemia, hypothyroidism: Obtain and continue medications as appropriate. DVT PPX: Lovenox Code status: Full Discharge Plan: Home Plan to discharge in: 24 Hours - Advance Directives Does patient have a Living Will: No Does patient have a Durable POA for Healthcare: No - Code Status/Comfort Care Code Status Assessed: Yes (Full code) Critical Care: No Time Spent Managing Pts Care (In Minutes): 55
[2020-10-12] MEDS ORDERED: HYDROMORPHONE HCL 1 MG/ML INJ ONE (19:40)
[2020-10-12] MEDS ORDERED: PIPERACIL/TAZO 3.375 GM VIAL IV ONE (19:41)
[2020-10-12] MEDS ORDERED: CEFTRIAXONE/SWI 1gm 1 GM/10 ML SYR ONE (19:41)
[2020-10-12] MEDS ORDERED: NA CHLORIDE 0.9% 100 ML ONE (19:41)
[2020-10-12] MEDS ORDERED: MORPHINE 2 MG/ML SYR IV PRN (21:42)
[2020-10-12] MEDS ORDERED: ONDANSETRON 4 MG/2 ML VIAL IV PRN (21:42)
[2020-10-12] MEDS: NA CHLORIDE 0.9% 1,000 ML IV SCH (21:42)
[2020-10-13 00:20] VITALS: BMI 28.3
[2020-10-13] MEDS ORDERED: MORPHINE 2 MG/ML SYR ONE (02:26)
[2020-10-13 02:39] LABS: Albumin 3.3 g/dL (3.4-5.0); Bilirubin Total 0.4 mg/dL (0.2-1.0); Potassium 3.7 mmol/L (3.5-5.1); Protein, Total 6.3 g/dL (6.4-8.2); Thyroid Stimulating Hormone 0.087 uIU/mL (0.360-3.740)
[2020-10-13 02:44] LABS: Albumin 3.4 g/dL (3.4-5.0); Bilirubin Direct 0.1 mg/dL (0-0.2); Bilirubin Total 0.4 mg/dL (0.2-1.0); Protein, Total 6.3 g/dL (6.4-8.2)
[2020-10-13 05:41] LABS: Absolute Lymphocytes (CBC) 0.9 K/uL (0.7-4.9); Basophils % 0.5 % (0-1.3); Hematocrit 39.5 % (39.6-49.0); Lymphocytes % 10.3 % (15.3-44.8); MPV 9.5 fL (7.6-11.3); RBC Red Blood Cell Count 4.48 M/uL (4.33-5.43)
[2020-10-13] MEDS ORDERED: POTASSIUM CL SA 10 MEQ TAB PO ONE ×2 (07:11→07:52)
[2020-10-13] MEDS: NA CHLORIDE 0.9% 1,000 ML IV SCH (07:14)
[2020-10-13] MEDS ORDERED: NA CHLORIDE 0.9% 0 ML ONE (07:35)
[2020-10-13] MEDS ORDERED: ENOXAPARIN 40 MG/0.4 ML SQ ONE (07:51)
[2020-10-13] MEDS ORDERED: CIPROFLOXACIN 400mg IV 400 MG/200 ML BAG IV ONE (07:51)
[2020-10-13] MEDS ORDERED: METRONIDAZOLE 500mg IVPB 500 MG/100 ML BAG IV ONE ×2 (07:51→12:15)
[2020-10-13] MEDS: METRONIDAZOLE 500mg IVPB 500 MG/100 ML BAG IV SCH ×2 (08:00→16:21)
[2020-10-13] MEDS: CIPROFLOXACIN 400mg IV 400 MG/200 ML BAG IV SCH ×2 (08:00→21:13)
[2020-10-13] MEDS ORDERED: ENOXAPARIN 40 MG/0.4 ML SQ SCH (09:00)
[2020-10-13 09:03] VITALS: O2SAT 98
[2020-10-13] MEDS: ACETAMINOPHEN 500 MG TAB PO PRN ×2 (09:10→16:21)
[2020-10-13] MEDS ORDERED: ACETAMINOPHEN 500 MG TAB ONE (09:33)
[2020-10-13 11:26] LABS: Urine Appearance CLEAR (Clear); Urine Bilirubin NEGATIVE (Negative); Urine Blood NEGATIVE (Negative); Urine Color YELLOW (Yellow); Urine Glucose NEGATIVE (Negative); Urine Protein NEGATIVE (Negative); Urine Urobilinogen 0.2 mg/dL (0.2-1.0)
[2020-10-13 11:44] LABS: Urine Microscopic Reflex NO UMIC
[2020-10-13] MEDS ORDERED: NA CHLORIDE 0.9% 1,000 ML ONE (12:15)
--- NOTE | 2020-10-13 13:34 | P.PN ---
Subjective Date of Service: 10/13/20 Primary Care Provider: Dr. Tillman Chief Complaint: Acute sigmoid diverticulitis Subjective: No new changes (feels about the same this morning, still with LLQ pain - moderate most of the time and tender. no nausea/vomiting, afebrile, pain with gas, no BM) Review of Systems 10-point ROS is otherwise unremarkable Physical Examination - Vital Signs Temperature: 98.6 F Blood Pressure: 123/76 Pulse: 83 Respirations: 16 Pulse Ox (%): 99 - Studies Laboratory Data (last 24 hrs) 10/12/20 17:50: WBC 10.50, Hgb 14.5, Hct 43.0, Plt Count 153 10/12/20 17:50: Sodium 139, Potassium 4.2, BUN 10, Creatinine 0.85, Glucose 101, Total Bilirubin 0.6, AST 27, ALT 47, Alkaline Phosphatase 82, Lipase 158 Assessment & Plan Physician Review Additional Text: Physical Exam General: AAO3, uncomfortable HEENT: normal conjunctiva, sclera anicteric Respiratory: Clear to auscultation bilaterally, Normal air movement Cardiovascular: Regular rate/rhythm, Normal S1 S2 Gastrointestinal: soft, moderate-severe tenderness in LLQ, non-distended Integumentary: No rashes Problem List Moderate acute sigmoid diverticulitis Hypertension, hyperlipidemia, hypothyroidism -tolerated sips of water/ice chips overnight -advance to CLD -serial abd exms -continue cipro/flagyl -NPO if pain worsens -last BM yesterday, no blood -no h/o diverticulitis Dispo: anticipate dc home tomorrow Time Spent Managing Pts Care (In Minutes): 35
[2020-10-14] MEDS: METRONIDAZOLE 500mg IVPB 500 MG/100 ML BAG IV SCH (00:14)
[2020-10-14 05:40] LABS: Absolute Lymphocytes (CBC) 0.7 K/uL (0.7-4.9); Basophils % 0.5 % (0-1.3); Lymphocytes % 9.6 % (15.3-44.8); MPV 9.6 fL (7.6-11.3); RBC Red Blood Cell Count 4.33 M/uL (4.33-5.43)
[2020-10-14 05:55] LABS: ALT/SGPT 30 U/L (12-78); AST/SGOT 15 U/L (15-37); Albumin 3.2 g/dL (3.4-5.0); Alkaline Phosphatase 59 U/L (45-117); BUN Blood Urea Nitrogen 8 mg/dL (7-18); Bicarbonate 29 mmol/L (21-32); Bilirubin Total 0.6 mg/dL (0.2-1.0); Glucose Level 99 mg/dL (74-106); Potassium 3.8 mmol/L (3.5-5.1); Protein, Total 6.4 g/dL (6.4-8.2); Sodium Level 140 mmol/L (136-145)
[2020-10-14] MEDS ORDERED: POTASSIUM CL SA 10 MEQ TAB PO ONE (06:08)
[2020-10-14 08:05] VITALS: BP 130/58; TEMP 97.9
--- NOTE | 2020-10-14 12:14 | P.DS ---
Admission Date: 10/13/20 Discharge Date: 10/14/20 Primary Care Provider: Dr. Tillman Disposition: ROUTINE DISCHARGE Discharge Condition: GOOD Reason for Admission: Acute sigmoid diverticulitis Procedures: CT - Abdomen Pelvis W Contrast - 10/12/2020 6:14 pm FINDINGS: The liver, spleen, pancreas, adrenal and kidneys appear unremarkable. Diverticula stem from the colon. Mild to moderate stranding adjacent to the proximal sigmoid colon. No free air. No abscess Small umbilical hernia IMPRESSION: Mild to moderate sigmoid diverticulitis Problem List Moderate acute sigmoid diverticulitis, without sepsis Hypertension hyperlipidemia hypothyroidism Brief History of Present Illness: 50-year-old male with history of hypertension, hyperlipidemia, hypothyroidism, history of prostate cancer presents emergency department for left lower quadrant abdominal pain. Patient reports worsening pain over the course of the last 24 hours, denies any nausea vomiting or diarrhea. Patient was evaluated in the emergency department, labs significant for white blood cell count 10.0, CT abdomen pelvis demonstrates mild to moderate sigmoid diverticulitis without perforation/abscess. Patient with moderate pain still, ED progress is to admit under observation for further evaluation and management. Hospital Course: Patient was treated with bowel rest, IV fluids, and empiric antibiotics with ciprofloxacin and Flagyl. He had improvement of his symptoms, and he was tolerating a full liquid diet. He requested to be discharged home, and given that he had no leukocytosis, remained afebrile, and his improvement of symptoms, he was discharged home to complete 2-week course of ciprofloxacin and Flagyl. Recommended to take probiotic as well. He is to follow-up with his PCP in 3 to 5 weeks He should also follow-up with a GI physician, recommend colonoscopy in approximately 2-3 months Vital Signs/Physical Exam: Temp Pulse Resp BP Pulse Ox 97.9 F 73 18 130/58 L 94 10/14/20 08:00 10/14/20 08:00 10/14/20 08:00 10/14/20 08:00 10/14/20 08:00 General: Alert, In no apparent distress, Oriented x3 HEENT: Mucous membr. moist/pink, Sclerae nonicteric Respiratory: Clear to auscultation bilaterally, Normal air movement Cardiovascular: No edema, Regular rate/rhythm, Normal S1 S2 Capillary refill: <2 Seconds Gastrointestinal: Soft and benign, Non-distended, Tenderness (mild LLQ) Musculoskeletal: No erythema, No tenderness Integumentary: No rashes, No significant lesion Neurological: Normal speech, Normal strength at 5/5 x4 extr, Normal affect Laboratory Data at Discharge: WBC 7.60 K/uL (4.3-10.9) 10/14/20 05:08 Hgb 12.9 g/dL (13.6-17.9) L 10/14/20 05:08 Hct 38.0 % (39.6-49.0) L 10/14/20 05:08 Plt Count 133 K/uL (152-406) L 10/14/20 05:08 Sodium 140 mmol/L (136-145) 10/14/20 05:08 Potassium 3.8 mmol/L (3.5-5.1) 10/14/20 05:08 BUN 8 mg/dL (7-18) 10/14/20 05:08 Creatinine 0.82 mg/dL (0.55-1.3) 10/14/20 05:08 Glucose 99 mg/dL (74-106) 10/14/20 05:08 Total Bilirubin 0.6 mg/dL (0.2-1.0) 10/14/20 05:08 AST 15 U/L (15-37) 10/14/20 05:08 ALT 30 U/L (12-78) 10/14/20 05:08 Alkaline Phosphatase 59 U/L (45-117) 10/14/20 05:08 Lipase 158 U/L (73-393) 10/12/20 17:50 Home Medications: Levothyroxine Sodium [Levothyroxine] 1 tab PO DAILY 10/13/20 RX: Losartan Potassium [Cozaar] 1 tab PO DAILY 10/13/20 RX: Metoprolol Tartrate [Lopressor*] 1 tab PO BID 10/13/20 RX: Ciprofloxacin HCl 500 mg PO BID #24 tablet 10/14/20 metroNIDAZOLE [Flagyl] 500 mg PO TID 12 Days #36 tablet 10/14/20 New Medications: RX: Ciprofloxacin HCl 500 mg PO BID #24 tablet metroNIDAZOLE [Flagyl] 500 mg PO TID 12 Days #36 tablet Followup: Reji Tillman MD [Primary Care Provider] - (Follow up 3-5 days) Time spent managing pt's care (in minutes): 40
== END 2020-10-14 08:21 | disposition home or self-care (01) | DRG 392 ==
LOC: ER 14:47 → ERHOLD 19:49 → 2ND 10-13 13:38 → OBSVTOIN 10-13 15:06
PROVIDERS: ADMIT Hospitalist; ATTEND Hospitalist
DX: K57.32 Diverticulitis of large intestine without perforation or abscess without bleeding (principal); I10 Essential (primary) hypertension; E78.5 Hyperlipidemia, unspecified; E03.9 Hypothyroidism, unspecified; Z85.46 Personal history of malignant neoplasm of prostate
CPT/HCPCS: 36415; 74177; 80048; 80053; 80076; 81003; 82565; 83690; 84439; 84443; 85025; 87086; 87088; 96361; 96365; 96375; 99285; G0378; J0696; J0744; J1170; J1650; J2270; J2405; J2543; J7030; Q9967

== ENCOUNTER 2021-05-31 20:22 | Inpatient (IN) | payer BC ==
--- OUTSIDE RECORDS SUMMARY | 2021-05-31 20:26 | XMS REPORT | Continuity of Care Document ---
:1970 Author Organization [facility] t Address [address] [place] [address] [address]. [address] [place] [address] Care Team Providers Name Role Phone JAKOB Attending Clinician Unavailable MADONNA Attending Clinician Unavailable MD Mukesh ROBERT Attending Clinician Unavailable AVINASH Attending Clinician Unavailable TRUONG Attending Clinician Unavailable MADONNA Admitting Clinician Unavailable MD Floresita THORNTON Admitting Clinician Unavailable Problems This patient has no known problems. Allergies, Adverse Reactions, Alerts This patient has no known allergies or adverse reactions. Medications This patient has no known medications. Procedures This patient has no known procedures. Encounters Start End Encounter Admission Attending Care Care Encounter Source Date/Time Date/Time Type Type Clinicians Facility Department ID 2021-05-30 2021-05-30 Outpatient EKERUO, [facility] [id number] [place] 00:00:00 00:00:00 CRISTI 315 [facility] 2020-07-24 2020-07-24 [id number] [place] 00:00:00 00:00:00 CRISTI 594 [facility] 2020-06-25 2020-06-25 Outpatient EKERUO, [facility] [id number] [place] 00:00:00 00:00:00 CRISTI 483 [facility] i 2020-06-17 2020-06-19 Outpatient [facility] [id number] [place] 00:00:00 00:00:00 LUCIE 585 [facility] i 2020-06-12 2020-06-12 [facility] [id number] [place] 00:00:00 00:00:00 CRISTI 064 [facility] 2020-06-12 2020-06-12 Outpatient EKERUO, [facility] [id number] [place] 00:00:00 00:00:00 CRISTI 176 [facility] 2020-06-04 2020-06-04 Outpatient JAKOB, [facility] [id number] [place] 00:00:00 00:00:00 CRISTI 573 [facility] i 2020-05-22 2020-05-22 Outpatient AVINASH [facility] [id number] [place] 00:00:00 00:00:00 JAMIE 389 [facility] i 2020-05-03 2020-05-03 Outpatient TRUONG [facility] [id number] [place] 00:00:00 00:00:00 MORIS 497 Method i 2020-05-03 2020-05-03 Outpatient TRUONG [facility] [id number] [place] 00:00:00 00:00:00 MORIS 499 [facility] i 2020-05-03 2020-05-03 Outpatient TRUONG [facility] [id number] [place] 00:00:00 00:00:00 MORIS 498 Method i 2020-04-18 2020-04-18 Outpatient TRUONG [facility] [id number] [place] 00:00:00 00:00:[address] MORIS [address] Results Test Description Test Time Test Comments Results Result Comments Source SARS-CoV-2 (COVID-19) RNA [Presence] in Respiratory sp ecimen by 2020-06-12 19:20:48 FANNY with probe detection Test Item Value Reference Range Interpretation Comme nts SARS-CoV-2 (COVID-19) RNA [Presence] in Respiratory Not detected No t-Detected specimen by FANNY with probe detection (test code = 85397-0)
[2021-05-31 21:07] LABS: Absolute Lymphocytes (CBC) 0.3 K/uL (0.7-4.9); Hematocrit 41.9 % (39.6-49.0); Lymphocytes % 2.4 % (15.3-44.8); MPV 9.8 fL (7.6-11.3); RBC Red Blood Cell Count 4.68 M/uL (4.33-5.43)
[2021-05-31] MEDS ORDERED: ONDANSETRON 4 MG/2 ML VIAL ONE (21:09)
[2021-05-31] MEDS ORDERED: MORPHINE 4 MG/ML SYR ONE ×2 (21:09→22:47)
[2021-05-31] MEDS ORDERED: CIPROFLOXACIN 400mg IV 400 MG/200 ML BAG IV ONE (21:10)
[2021-05-31] MEDS ORDERED: METRONIDAZOLE 500mg IVPB 500 MG/100 ML BAG IV ONE (21:10)
[2021-05-31 21:19] LABS: Albumin 3.8 g/dL (3.4-5.0); Potassium 4.1 mmol/L (3.5-5.1)
[2021-05-31 21:24] LABS: Bilirubin Direct 0.1 mg/dL (0-0.2); Bilirubin Total 0.5 mg/dL (0.2-1.0); Protein, Total 7.4 g/dL (6.4-8.2)
[2021-05-31 21:27] LABS: Blood Morphology Comment NOT SEEN (NOT SEEN); Platelet Estimate ADEQ
--- NOTE | 2021-05-31 21:58 | RAD REPORT ---
EXAM DESCRIPTION: CTAbdomen Pelvis W Contrast - 05/31/2021 9:43 pm CLINICAL HISTORY: Abdominal pain. LLQ abd pain, possible diverticulitis COMPARISON: Abdomen Pelvis W Contrast dated 10/12/2020 TECHNIQUE: Biphasic CT imaging of the abdomen and pelvis was performed with 100 ml non-ionic IV cont rast. All CT scans are performed using dose optimization technique as appropriate and may include automated exposure control or mA/KV adjustment according to patient size. FINDINGS: Linear subsegmental atelectasis is present in both posterior lung bases. The liver, spleen, pancreas, adrenal glands and kidneys are within normal limits. No bowel obstruction, free air, free fluid or abscess. Mild inflammation is seen in the distal descen ding colon suggesting mild acute diverticulitis. Appendectomy. Mild sigmoid diverticulosis is present without diverticulitis. No evidence of significant lymphadenopathy. No suspicious bony findings. IMPRESSION: Mild acute diverticulitis of the distal descending colon suspected. No peridiverticular abscess. After appropriate therapy, consider followup direct visualization with colonoscopy of this region.
--- NOTE | 2021-05-31 22:23 | EDPHYS ---
Physician Documentation [facility] Name: Fab Hinojosa Age: 50 yrs Sex: Male : 1970 Arrival Date: 05/31/2021 Time: 20:26 Bed 24 Private MD: ED Physician Ivan Cruz HPI: 05/31 20:43 This 50 yrs old Male presents to ER via Unassigned with complaints of Abdominal Pain - rn LLQ. 20:43 The patient presents with abdominal pain in the left lower quadrant. Onset: The rn symptoms/episode began/occurred today. The symptoms do not radiate. Associated signs and symptoms: Pertinent positives: nausea, Pertinent negatives: blood in stools, chest pain, constipation, diarrhea, dysuria, fever, hematuria. The symptoms are described as intermittent, sharp. Modifying factors: The symptoms are alleviated by nothing. 20:45 Severity of pain: At its worst the pain was moderate in the emergency department the rn pain has improved. The patient has experienced a previous episode. The patient has not recently seen a physician. Pt reports LLQ abd pain, began today, similar to previous episode of diverticulitis, no fever, + nausea, no diarrhea/constipation, no blood in stool. No trauma. . Historical: - PMHx: 20:45 Hypercholesterolemia; Hypothyroidism; PROSTATE CA; Hypertensive disorder; st1 - PSHx: 20:45 Appendectomy; prostate removed; st1 - Immunization history:: Adult Immunizations up to date. - Social history:: Smoking status: Patient denies any tobacco usage or history of. Patient/guardian denies using alcohol, street drugs, IV drugs, tobacco products. - Family history:: not pertinent. - Hospitalizations: : No recent hospitalization is reported. ROS: 20:45 Constitutional: Negative for fever, chills, and weight loss, Eyes: Negative for injury, rn pain, redness, and discharge, Neck: Negative for injury, pain, and swelling, Cardiovascular: Negative for chest pain, palpitations, and edema, Respiratory: Negative for shortness of breath, cough, wheezing, and pleuritic chest pain, Abdomen/GI: + LLQ abd pain and nausea Back: Negative for injury and pain, : Negative for injury, bleeding, discharge, and swelling, MS/Extremity: Negative for injury and deformity, Skin: Negative for injury, rash, and discoloration, Neuro: Negative for headache, weakness, numbness, tingling, and seizure. Exam: 20:45 Constitutional: This is a well developed, well nourished patient who is awake, alert, rn appears uncomfortable Head/Face: Normocephalic, atraumatic. ENT: MMM Cardiovascular: Tachycardic, regular. No pulse deficits. Respiratory: No increased work of breathing, no retractions or nasal flaring. Abdomen/GI: soft, + tender LLQ with guarding Skin: Warm, dry MS/ Extremity: Pulses equal, no cyanosis. Neuro: Awake and alert, GCS 15 Vital Signs: 20:43 BP 112 / 83; Pulse 116; Resp 12; Temp 98.6; Pulse Ox 97% on R/A; Weight 108.86 kg; st1 Height 6 ft. 1 in. (185.42 cm); Pain 10/10; 20:46 BP 125 / 87 LA Supine (auto/reg); Pulse 110 MON; Resp 20; Pulse Ox 95% ; Pain 10/10; tk1 21:00 BP 116 / 74 LA Supine (auto/reg); Pulse 111 MON; Resp 18 S; Temp 98(O); Pulse Ox 96% on tk1 R/A; 22:00 BP 114 / 75 LA Supine (auto/reg); Pulse 114 MON; Resp 18 S; Pulse Ox 97% on R/A; Pain tk1 10/10; 23:35 BP 130 / 74 LA Supine (auto/reg); Pulse 121 MON; Resp 18 S; Pulse Ox 96% on R/A; Pain tk1 7/10; 20:43 Body Mass Index 31.66 (108.86 kg, 185.42 cm) st1 MDM: 20:27 Patient medically screened. rn 22:21 Differential diagnosis: bowel obstruction, diverticulitis, non-specific abd pain, rn Ureterolithiasis. Data reviewed: vital signs, nurses notes, lab test result(s), radiologic studies, CT scan, and as a result, I will admit patient. Counseling: I had a detailed discussion with the patient and/or guardian regarding: the historical points, exam findings, and any diagnostic results supporting the discharge/admit diagnosis, lab results, radiology results, the need for further work-up and treatment in the hospital. Response to treatment: the patient's symptoms have mildly improved after treatment, and as a result, I will admit patient. Admission orders: after a detailed discussion of the patient's condition and case, the admit orders are written by me. ED course: Pt with mild diverticulitis on CT abdomen, no perforation, still complaining of moderate pain and tachycardic, 11% bands, will admit for IV abx.. 05/31 20:28 Order name: Basic Metabolic Panel; Complete Time: 21:31 rn 05/31 20:28 Order name: CBC with Diff; Complete Time: : rn 05/31 20:28 Order name: Hepatic Function; Complete Time: : rn 05/31 20:28 Order name: Lipase; Complete Time: : rn 05/31 21:08 Order name: Manual Differential; Complete Time: 21:31 EDMS 05/31 22:27 Order name: COVID-19 SARS RT PCR (Document "Date of Onset" if Symptomatic) lp1 05/31 20:28 Order name: IV Saline Lock; Complete Time: 20:45 rn 05/31 20:28 Order name: CT Abd/Pelvis - IV Contrast Only; Complete Time: 21:59 rn 05/31 20:28 Order name: Labs collected and sent; Complete Time: 20:45 rn Administered Medications: 21:10 Drug: morphine 4 mg Route: IVP; Rate: 2 mg/min; Infused Over: 2 mins; Site: right tk1 antecubital; 22:40 Follow up: Response: Pain is unchanged, physician notified; RASS: Alert and Calm (0) tk1 21:12 Drug: Zofran (Ondansetron) 4 mg Route: IVP; Rate: 2 mg/min; Infused Over: 2 mins; Site: tk1 right antecubital; 22:41 Follow up: Response: Nausea is decreased tk1 21:14 Dru mg of (Cipro (ciprofloxacin) 400 mg, D5W 200 ml) Volume: 200 ml; Route: IVPB; tk1 Rate: 400 ml/hr; Infused Over: 60 mins; Site: right antecubital; Delivery: Primary tubing; 22:41 Follow up: IV Status: Completed infusion; IV Intake: 200ml tk1 23:19 Follow up: IV Status: Completed infusion; IV Intake: 200ml tk1 23:19 Follow up: Response: No adverse reaction tk1 22:40 Drug: Flagyl (metroNIDAZOLE) 500 mg Volume: 100 ml; Route: IVPB; Rate: 200 ml/hr; tk1 Infused Over: 30 mins; Site: right antecubital; Delivery: Primary tubing; 23:45 Follow up: Response: No adverse reaction; IV Status: Completed infusion; IV Intake: tk1 100ml 22:48 Drug: NS 0.9% 1000 ml Route: IV; Rate: 1000 ml; Infused Over: 1 hrs; Site: right tk1 antecubital; Delivery: Primary tubing; 23:45 Follow up: IV Status: Completed infusion; IV Intake: 1000ml tk1 22:49 Drug: morphine 4 mg Route: IVP; Rate: 2 mg/min; Infused Over: 2 mins; Site: right tk1 antecubital; 23:44 Follow up: Response: Pain is decreased; RASS: Alert and Calm (0) tk1 Disposition Summary: 05/31/21 22:22 Hospitalization Ordered Hospitalization Status: Inpatient Admission rn Provider: Radha Zheng rn Condition: Stable rn Problem: new rn Symptoms: have improved rn Bed/Room Type: Standard rn Location: Telemetry/MedSurg (Inpatient)(05/31/21 23:18) mw Room Assignment: 215(05/31/21 23:26) mw Diagnosis - Diverticulitis of intestine, part unspecified, without perforation or abscess rn without bleeding Forms: - Medication Reconciliation Form rn - SBAR form rn Signatures: Dispatcher [employer] Shea Bowen RN RN mw Nieto, Roman, MD MD rn Kirby, Tammie tk1 Dolores Bernstein RN RN st1 Corrections: (The following items were deleted from the chart) 23:18 22:22 Telemetry/MedSurg (Inpatient) rn mw 23:18 22:22 rn mw 23:18 23:18 215 mw mw 23:26 23:18 mw mw
--- NOTE | 2021-05-31 22:23 | ER ---
Nurse's Notes [facility] Name: Fab Hinojosa Age: 50 yrs Sex: Male : 1970 Arrival Date: 05/31/2021 Time: 20:26 Bed 24 Private MD: Diagnosis: Diverticulitis of intestine, part unspecified, without perforation or abscess without bleeding Presentation: 05/31 20:43 Chief complaint: Patient states: left sided abdominal pain x 1 day. Coronavirus screen: st1 Vaccine status: Patient reports receiving the 2nd dose of the covid vaccine. Pfizer. Ebola Screen: No symptoms or risks identified at this time. Initial Sepsis Screen: Does the patient meet any 2 criteria? No. Patient's initial sepsis screen is negative. Does the patient have a suspected source of infection? No. Patient's initial sepsis screen is negative. Risk Assessment: Do you want to hurt yourself or someone else? Patient reports no desire to harm self or others. Onset of symptoms was May 31, 2021. 20:43 Method Of Arrival: Wheelchair st1 20:43 Acuity: ANNELIESE 3 st1 Triage Assessment: 20:45 General: Appears distressed, uncomfortable, slender, well groomed, well developed, st1 Behavior is cooperative, anxious, restless. Pain: Complains of pain in left abdominal pain Pain radiates to Midline (umbilicus) Pain currently is 10 out of 10 on a pain scale. GI: No deficits noted. Historical: - PMHx: 20:45 Hypercholesterolemia; Hypothyroidism; PROSTATE CA; Hypertensive disorder; st1 - PSHx: 20:45 Appendectomy; prostate removed; st1 - Immunization history:: Adult Immunizations up to date. - Social history:: Smoking status: Patient denies any tobacco usage or history of. Patient/guardian denies using alcohol, street drugs, IV drugs, tobacco products. - Family history:: not pertinent. - Hospitalizations: : No recent hospitalization is reported. Screenin:46 Abuse screen: Denies threats or abuse. Denies injuries from another. Nutritional tk1 screening: No deficits noted. Tuberculosis screening: No symptoms or risk factors identified. Fall Risk None identified. Assessment: 20:46 General: Appears in no apparent distress. comfortable, well groomed, well developed, tk1 well nourished, Behavior is calm, cooperative, appropriate for age. Pain: Complains of pain in abdomen Pain does not radiate. Pain currently is 10 out of 10 on a pain scale. Quality of pain is described as sharp, Pain began 1 day ago. Is continuous. Neuro: Level of Consciousness is awake, alert, obeys commands, Oriented to person, place, time, situation, Appropriate for age Reducing Salon Attendant are equal bilaterally Moves all extremities. Speech is normal. Cardiovascular: No deficits noted. Capillary refill < 3 seconds is brisk in bilateral fingers. Respiratory: No deficits noted. Airway is patent Trachea midline Respiratory effort is even, unlabored, Respiratory pattern is regular, symmetrical. GI: Abdomen is flat, non-distended, Bowel sounds present X 4 quads. Abdomen is tender to palpation X 4 quads. Reports upper abdominal pain. : No deficits noted. No signs and/or symptoms were reported regarding the genitourinary system. EENT: No deficits noted. No signs and/or symptoms were reported regarding the EENT system. Derm: No deficits noted. No signs and/or symptoms reported regarding the dermatologic system. Musculoskeletal: No deficits noted. No signs and/or symptoms reported regarding the musculoskeletal system. 22:00 Reassessment: No changes from previously documented assessment. Patient and/or family tk1 updated on plan of care and expected duration. Pain level reassessed. Patient is alert, oriented x 3, equal unlabored respirations, skin warm/dry/pink. 22:50 Reassessment: No changes from previously documented assessment. Patient and/or family tk1 updated on plan of care and expected duration. Pain level reassessed. Patient is alert, oriented x 3, equal unlabored respirations, skin warm/dry/pink. Pain: Complains of pain in abdomen Pain does not radiate. Pain currently is 10 out of 10 on a pain scale. Vital Signs: 20:43 BP 112 / 83; Pulse 116; Resp 12; Temp 98.6; Pulse Ox 97% on R/A; Weight 108.86 kg; st1 Height 6 ft. 1 in. (185.42 cm); Pain 10/10; 20:46 BP 125 / 87 LA Supine (auto/reg); Pulse 110 MON; Resp 20; Pulse Ox 95% ; Pain 10/10; tk1 21:00 BP 116 / 74 LA Supine (auto/reg); Pulse 111 MON; Resp 18 S; Temp 98(O); Pulse Ox 96% on tk1 R/A; 22:00 BP 114 / 75 LA Supine (auto/reg); Pulse 114 MON; Resp 18 S; Pulse Ox 97% on R/A; Pain tk1 1010; 23:35 BP 130 / 74 LA Supine (auto/reg); Pulse 121 MON; Resp 18 S; Pulse Ox 96% on R/A; Pain tk1 7; 20:43 Body Mass Index 31.66 (108.86 kg, 185.42 cm) st1 Vitals: 20:46 Cardiac Rhythm Assessment Regular Sinus tach. tk1 ED Course: 20:26 Patient arrived in ED. wm 20:27 Ivan Cruz MD is Attending Physician. rn 20:45 Triage completed. st1 20:45 Fallon Gill is Primary Nurse. tk1 20:45 Basic Metabolic Panel Sent. tk1 20:45 CBC with Diff Sent. tk1 20:45 Hepatic Function Sent. tk1 20:45 Lipase Sent. tk1 20:45 Arm band placed on right wrist. st1 20:46 No provider procedures requiring assistance completed. Inserted saline lock: 20 gauge tk1 in right antecubital area, using aseptic technique. Blood collected. 20:46 Patient has correct armband on for positive identification. Placed in gown. Bed in low tk1 position. Call light in reach. Side rails up X2. satellite project site monitor on. Pulse ox on. NIBP on. 21:28 Notified ED physician of a critical lab result(s). Bands 11%. lp1 21:42 CT Abd/Pelvis - IV Contrast Only In Process Unspecified. EDMS 22:22 Atul Rutherford is Hospitalizing Provider. rn 22:22 Radha Zheng MD is Hospitalizing Provider. rn 22:40 COVID-19 SARS RT PCR (Document "Date of Onset" if Symptomatic) Sent. tk1 23:35 IV is patent, is intact, with fluids infusing freely, with good blood return. tk1 23:48 Report given to LISA Miller. tk1 Administered Medications: 21:10 Drug: morphine 4 mg Route: IVP; Rate: 2 mg/min; Infused Over: 2 mins; Site: right tk1 antecubital; 22:40 Follow up: Response: Pain is unchanged, physician notified; RASS: Alert and Calm (0) tk1 21:12 Drug: Zofran (Ondansetron) 4 mg Route: IVP; Rate: 2 mg/min; Infused Over: 2 mins; Site: tk1 right antecubital; 22:41 Follow up: Response: Nausea is decreased tk1 21:14 Dru mg of (Cipro (ciprofloxacin) 400 mg, D5W 200 ml) Volume: 200 ml; Route: IVPB; tk1 Rate: 400 ml/hr; Infused Over: 60 mins; Site: right antecubital; Delivery: Primary tubing; 22:41 Follow up: IV Status: Completed infusion; IV Intake: 200ml tk1 23:19 Follow up: IV Status: Completed infusion; IV Intake: 200ml tk1 23:19 Follow up: Response: No adverse reaction tk1 22:40 Drug: Flagyl (metroNIDAZOLE) 500 mg Volume: 100 ml; Route: IVPB; Rate: 200 ml/hr; tk1 Infused Over: 30 mins; Site: right antecubital; Delivery: Primary tubing; 23:45 Follow up: Response: No adverse reaction; IV Status: Completed infusion; IV Intake: tk1 100ml 22:48 Drug: NS 0.9% 1000 ml Route: IV; Rate: 1000 ml; Infused Over: 1 hrs; Site: right tk1 antecubital; Delivery: Primary tubing; 23:45 Follow up: IV Status: Completed infusion; IV Intake: 1000ml tk1 22:49 Drug: morphine 4 mg Route: IVP; Rate: 2 mg/min; Infused Over: 2 mins; Site: right tk1 antecubital; 23:44 Follow up: Response: Pain is decreased; RASS: Alert and Calm (0) tk1 Intake: 22:41 IV: 200ml; Total: 200ml. tk1 23:19 IV: 200ml; Total: 400ml. tk1 23:45 IV: 1000ml; Total: 1400ml. tk1 23:45 IV: 100ml; Total: 1500ml. tk1 Outcome: 22:22 Decision to Hospitalize by Provider. rn 23:35 Admitted to Med/surg accompanied by nurse, via wheelchair, room 215, with chart, Report tk1 called to Attempted to call report to LISA Miller. LISA Harris states, Angela will call back. 06/01 00:06 Patient left the ED. tk1 Signatures: Dispatcher [employer] EDMS Ivan Cruz MD MD rn Pena, Laura, RN RN lp1 Tomeka You Tammie tk1 Dolores Bernstein, LISA RN st1 Corrections: (The following items were deleted from the chart) 00:06 05/31 23:35 Admitted to Med/surg accompanied by tech, via wheelchair, room 215, with tk1 chart, Report called to Attempted to call report to LISA Miller. LISA Harris states, Angela will call back. tk1
[2021-05-31] MEDS ORDERED: NA CHLORIDE 0.9% 1,000 ML ONE (22:47)
[2021-05-31] MEDS ORDERED: ACETAMINOPHEN 500 MG TAB PO PRN (23:56)
[2021-05-31] MEDS ORDERED: ONDANSETRON 4 MG/2 ML VIAL IV PRN (23:56)
--- NOTE | 2021-05-31 23:56 | P.HP ---
Certification for Inpatient Patient admitted to: Inpatient With expected LOS: <2 Midnights Patient will require the following post-hospital care: None Practitioner: I am a practitioner with admitting privileges, knowledge of patient current condition, hospital course, and medical plan of care. Services: Services provided to patient in accordance with Admission requirements found in Title 42 Section 412.3 of the Code of Federal Regulations <Gely Fitzpatrick - Last Filed: 05/31/21 23:47> Patient History Date of Service: 05/31/21 Primary Care Provider: Dr. Tillman Reason for admission: Diverticulitis History of Present Illness: Patient is a 50-year-old male with past medical history of hypertens ion, hyperlipidemia, hypothyroidism, prostate cancer, diverticulosis who presented to the ED with complaints of left lower quadrant abdominal pain. He states the pain began this morning around 10:30 AM. He has had an episode of diverticulitis in the past. He states this pain feels worse than prior episode. He denies nausea, vomiting, blood in his stool, or fever. In the ED, labs significant for WBC 14.2, bands 11. CT abdomen pelvis with contrast showed mild acute diverticulitis of the distal descending colon without peridiverticular abscess. Patient was supposed to get colonoscopy outpatient after his last episode of diverticulitis however he has that on hold as is in the process of scheduling treatment for prostate cancer. Patient received morphine, Zofran, IV ciprofloxacin and Flagyl in the ED. He will be admitted for further treatment of acute diverticulitis. Home medications list reviewed: Yes - Past Medical/Surgical History Diabetic: No -: Hypertension -: Hyperlipidemia -: Hypothyroidism -: Prostate cancer -: Prostatectomy -: Appendectomy Psychosocial/ Personal History: Employed, lives with family - Family History Father -: Other (see notes) Mother -: Cancer - Social History Alcohol use: Yes CD- Drugs: No Caffeine use: Yes Place of Residence: Home <AmariGely - Last Filed: 05/31/21 23:47> Date of Service: 05/31/21 <Radha Zheng - Last Filed: 06/02/21 01:23> Allergies No Known Allergies Allergy (Unverified 10/12/20 21:42) Home Medications: Levothyroxine Sodium [Levothyroxine] 1 tab PO DAILY 10/13/20 Losartan Potassium [Cozaar] 1 tab PO DAILY 10/13/20 Metoprolol Tartrate [Lopressor*] 1 tab PO BID 10/13/20 Review of Systems 10-point ROS is otherwise unremarkable Gastrointestinal: Abdominal Pain <AmariGely - Last Filed: 05/31/21 23:47> Physical Examination - Physical Exam General: Alert, In no apparent distress, Oriented x3 HEENT: Atraumatic, PERRLA, Mucous membr. moist/pink, EOMI, Sclerae nonicteric Neck: Supple, 2+ carotid pulse no bruit, No LAD, Without JVD or thyroid abnormality Respiratory: Clear to auscultation bilaterally, Normal air movement Cardiovascular: Regular rate/rhythm, Normal S1 S2 Gastrointestinal: Normal bowel sounds, No tenderness Musculoskeletal: No tenderness Integumentary: No rashes Neurological: Normal speech, Normal strength at 5/5 x4 extr, Normal tone, Normal affect - Studies Laboratory Data (last 24 hrs) 05/31/21 20:57: WBC 14.20 H, Hgb 14.1, Hct 41.9, Plt Count 162 05/31/21 20:57: Sodium 137, Potassium 4.1, BUN 14, Creatinine 1.12, Glucose 181 H, Total Bilirubin 0.5, AST 21, ALT 39, Alkaline Phosphatase 75, Lipase 116 <Gely Fitzpatrick - Last Filed: 05/31/21 23:47> Assessment and Plan - Problems (Diagnosis) (1) Acute diverticulitis Current Visit: Yes Status: Acute (2) Hypertension Current Visit: No Status: Acute Qualifiers: Hypertension type: primary hypertension Qualified Code(s): I10 - Essential (primary) hypertension (3) Hyperlipidemia Current Visit: No Status: Acute Qualifiers: Hyperlipidemia type: mixed hyperlipidemia Qualified Code(s): E78.2 - Mixed hyperlipidemia (4) Hypothyroidism Current Visit: Yes Status: Chronic Qualifiers: Hypothyroidism type: acquired Qualified Code(s): E03.9 - Hypothyroidism, unspecified (5) History of prostate cancer Current Visit: Yes Status: Chronic (6) History of diverticulitis Current Visit: Yes Status: Chronic - Plan Patient will be admitted for IV antibioticsciprofloxacin and Flagyl We will keep patient n.p.o. allowing only ice chips and sips of water. We will continue IV fluids at 100 cc an hour Dilaudid as needed pain and Zofran as needed nausea Continue home medications Likely DC in 1 to 2 days when pain has improved and WBC has down trended DVT PPx: Lovenox Code: Full Discharge Plan: Home Plan to discharge in: 24 Hours - Advance Directives Does patient have a Living Will: No Does patient have a Durable POA for Healthcare: No - Code Status/Comfort Care Code Status Assessed: Yes (Full) Critical Care: No Time Spent Managing Pts Care (In Minutes): 70 <Gely Fitzpatrick - Last Filed: 05/31/21 23:47> Date of Service: 05/31/21 Subjective: HPI as mentioned above Physical Examination: Vitals: Afebrile vital signs are stable Physical exam: Cardiovascular: Within normal limits. Lungs: Within normal limits Abdomen: Within normal limits Neuro: Awake, alert, oriented to person place and time Assessment: 1. Acute diverticulitis Plan: 1. Continue with current plan of care as mentioned above <Radha Zheng - Last Filed: 06/02/21 01:23>
[2021-06-01] MEDS: D5 0.45 NS 1,000 ML IV SCH ×3 (00:02→19:56)
[2021-06-01] MEDS ORDERED: D5 0.45 NS 1,000 ML IV ONE (00:03)
[2021-06-01] MEDS: HYDROMORPHONE HCL 1 MG/ML INJ IV PRN ×5 (00:08→18:05)
[2021-06-01 00:59] VITALS: BMI 30.6
[2021-06-01 01:01] LABS: Urine Appearance CLEAR (Clear); Urine Bilirubin NEGATIVE (Negative); Urine Blood NEGATIVE (Negative); Urine Color YELLOW (Yellow); Urine Glucose NEGATIVE (Negative); Urine Protein NEGATIVE (Negative); Urine Specific Gravity >=1.030 (1.005-1.030); Urine Urobilinogen 0.2 mg/dL (0.2-1.0)
[2021-06-01 01:04] VITALS: O2SAT 99
[2021-06-01 01:10] LABS: Urine Microscopic Reflex NO UMIC
[2021-06-01 06:06] LABS: Albumin 3.2 g/dL (3.4-5.0); Bilirubin Total 0.4 mg/dL (0.2-1.0); Magnesium 2.2 mg/dL (1.8-2.4); Potassium 4.1 mmol/L (3.5-5.1); Protein, Total 6.4 g/dL (6.4-8.2); Thyroid Stimulating Hormone 0.015 uIU/mL (0.360-3.740)
[2021-06-01] MEDS: Ciprofloxacin 200mg IV 200 MG/100 ML IV.SOLN. IV SCH ×2 (08:37→21:41)
[2021-06-01] MEDS: METRONIDAZOLE 250mg IVPB 250 MG/50 ML BAG IV SCH ×2 (08:37→16:36)
[2021-06-01] MEDS: ENOXAPARIN 40 MG/0.4 ML SQ SCH (08:38)
[2021-06-01 10:32] LABS: Absolute Lymphocytes (CBC) 1.4 K/uL (0.7-4.9); Hematocrit 39.2 % (39.6-49.0); Lymphocytes % 10.4 % (15.3-44.8); RBC Red Blood Cell Count 4.36 M/uL (4.33-5.43)
[2021-06-01] MEDS ORDERED: FENTANYL CITR 100 MCG/2 ML IV ONE ×2 (15:03→21:02)
[2021-06-01] MEDS: METOPROLOL TAR 25 MG TAB PO SCH (21:00)
[2021-06-01] MEDS ORDERED: HYDRALAZINE HCL 20 MG/ML VIAL IV PRN (21:03)
[2021-06-02] MEDS: METRONIDAZOLE 250mg IVPB 250 MG/50 ML BAG IV SCH ×3 (00:26→17:14)
--- NOTE | 2021-06-02 01:26 | P.PN ---
Subjective Date of Service: 06/01/21 Subjective: No new changes, No C/O voiced, Improving Review of Systems 10-point ROS is otherwise unremarkable Physical Examination - Vital Signs Temperature: 100.0 F Blood Pressure: 182/106 Pulse: 99 Respirations: 18 Pulse Ox (%): 98 - Physical Exam General: Alert, In no apparent distress, Oriented x3 HEENT: Atraumatic, PERRLA, EOMI Neck: Supple, JVD not distended Respiratory: Clear to auscultation bilaterally, Normal air movement Cardiovascular: Regular rate/rhythm, Normal S1 S2 Gastrointestinal: Non-distended, Tenderness, Rebound Musculoskeletal: No clubbing, No swelling, No tenderness Integumentary: No rashes Neurological: Normal strength at 5/5 x4 extr, Sensation intact, Cranial nerves 3-12 intact - Studies Medications List Reviewed: Yes Assessment & Plan - Problems (Diagnosis) (1) Acute diverticulitis Current Visit: Yes Status: Acute (2) History of diverticulitis Current Visit: Yes Status: Chronic (3) History of prostate cancer Current Visit: Yes Status: Chronic (4) Hypothyroidism Current Visit: Yes Status: Chronic Qualifiers: Hypothyroidism type: acquired Qualified Code(s): E03.9 - Hypothyroidism, unspecified (5) Hyperlipidemia Current Visit: No Status: Acute Qualifiers: Hyperlipidemia type: mixed hyperlipidemia Qualified Code(s): E78.2 - Mixed hyperlipidemia (6) Hypertension Current Visit: No Status: Acute Qualifiers: Hypertension type: primary hypertension Qualified Code(s): I10 - Essential (primary) hypertension - Plan -IV antibiotics -IV fluids -Surgery and GI consultation if symptoms worsen; outpatient colonoscopy -CBC, CMP, stool cultures -Clear liquid diet and will advance as tolerated -Repeat abdominal film -Antiemetics Discharge Plan: Home Plan to discharge in: Greater than 2 days - Advance Directives Does patient have a Living Will: No Does patient have a Durable POA for Healthcare: No - Code Status/Comfort Care Code Status Assessed: Yes Code Status: Full Code Critical Care: No Time Spent Managing PTS Care (In Minutes): 35
[2021-06-02] MEDS: HYDROMORPHONE HCL 1 MG/ML INJ IV PRN ×4 (03:45→14:31)
[2021-06-02 06:12] LABS: Absolute Lymphocytes (CBC) 0.7 K/uL (0.7-4.9); Hematocrit 37.5 % (39.6-49.0); Lymphocytes % 7.5 % (15.3-44.8); MPV 9.6 fL (7.6-11.3); RBC Red Blood Cell Count 4.13 M/uL (4.33-5.43)
[2021-06-02 06:40] LABS: ALT/SGPT 27 U/L (12-78); AST/SGOT 11 U/L (15-37); Albumin 3.2 g/dL (3.4-5.0); Alkaline Phosphatase 63 U/L (45-117); BUN Blood Urea Nitrogen 7 mg/dL (7-18); Bicarbonate 27 mmol/L (21-32); Bilirubin Total 0.6 mg/dL (0.2-1.0); Glucose Level 137 mg/dL (74-106); Magnesium 2.1 mg/dL (1.8-2.4); Potassium 3.7 mmol/L (3.5-5.1); Protein, Total 6.4 g/dL (6.4-8.2); Sodium Level 136 mmol/L (136-145)
[2021-06-02] MEDS: LOSARTAN POTASSIUM 50 MG TABLET PO SCH (08:37)
[2021-06-02] MEDS: Ciprofloxacin 200mg IV 200 MG/100 ML IV.SOLN. IV SCH ×2 (08:37→20:52)
[2021-06-02] MEDS: METOPROLOL TAR 25 MG TAB PO SCH ×2 (08:37→20:52)
[2021-06-02] MEDS: ENOXAPARIN 40 MG/0.4 ML SQ SCH (08:37)
[2021-06-02] MEDS: LEVOTHYROXINE SOD 0.05 MG TABLET PO SCH (08:37)
[2021-06-02] MEDS: D5 0.45 NS 1,000 ML IV SCH ×2 (11:54→15:56)
[2021-06-02] MEDS: HYDROCODONE/APAP 10/325 TAB PO PRN ×2 (13:09→21:23)
--- NOTE | 2021-06-02 14:48 | P.PN ---
Date of Service: 06/02/21 Subjective: minimal improvement tolerated some potato soup/pudding pain in same spot, slight radiation no improvement ROS: 10 point ROS as noted above, otherwise negative Physical Exam: General: alert, appears uncomfortable HEENT: PERRL, EOMI, sclera anicteric Respiratory: Clear to auscultation bilaterally, Normal air movement Cardiovascular: Regular rate/rhythm, Normal S1 S2 Gastrointestinal: soft, moderate TTP in LLQ, nontender in RUE/epigastrium Integumentary: No rashes Neurological: Normal strength at 5/5 x4 extr, Sensation intact Problem List: acute diverticulitis; h/o diverticulitis h/o prostate cancer hypothyroidism HTN HLD continue IV antibiotics, IVF CLD f/u stool cultures; last BM wednesday minimal improvement GI consult leukocytosis improving VTE: lovenox Code: full Dispo: home ~2 days Time Spent Managing PTS Care (In Minutes): 35
[2021-06-03] MEDS: D5 0.45 NS 1,000 ML IV SCH (00:04)
[2021-06-03] MEDS: METRONIDAZOLE 250mg IVPB 250 MG/50 ML BAG IV SCH ×2 (00:05→09:41)
[2021-06-03 05:46] LABS: Absolute Lymphocytes (CBC) 1.5 K/uL (0.7-4.9); Hematocrit 38.6 % (39.6-49.0); Lymphocytes % 16.4 % (15.3-44.8); MPV 9.3 fL (7.6-11.3); RBC Red Blood Cell Count 4.28 M/uL (4.33-5.43)
[2021-06-03 06:06] LABS: BUN Blood Urea Nitrogen 6 mg/dL (7-18); Bicarbonate 29 mmol/L (21-32); Glucose Level 117 mg/dL (74-106); Magnesium 2.3 mg/dL (1.8-2.4); Potassium 4.2 mmol/L (3.5-5.1); Sodium Level 139 mmol/L (136-145)
--- NOTE | 2021-06-03 06:20 | P.PN ---
Date of Service: 06/03/21 Subjective: ROS: 10 point ROS as noted above, otherwise negative Physical Exam: General: alert, appears uncomfortable HEENT: PERRL, EOMI, sclera anicteric Respiratory: Clear to auscultation bilaterally, Normal air movement Cardiovascular: Regular rate/rhythm, Normal S1 S2 Gastrointestinal: soft, moderate TTP in LLQ, nontender in RUE/epigastrium Integumentary: No rashes Neurological: Normal strength at 5/5 x4 extr, Sensation intact Problem List: acute diverticulitis; h/o diverticulitis h/o prostate cancer hypothyroidism HTN HLD continue IV antibiotics, IVF CLD f/u stool cultures; last BM wednesday minimal improvement GI consult leukocytosis improving VTE: lovenox Code: full Dispo: home ~2 days Time Spent Managing PTS Care (In Minutes): 35
[2021-06-03] MEDS: HYDROCODONE/APAP 10/325 TAB PO PRN ×2 (08:19→14:15)
[2021-06-03] MEDS: ENOXAPARIN 40 MG/0.4 ML SQ SCH (09:00)
[2021-06-03] MEDS: Ciprofloxacin 200mg IV 200 MG/100 ML IV.SOLN. IV SCH (09:41)
[2021-06-03] MEDS: LEVOTHYROXINE SOD 0.05 MG TABLET PO SCH (09:41)
[2021-06-03] MEDS: METOPROLOL TAR 25 MG TAB PO SCH (09:42)
[2021-06-03] MEDS: LOSARTAN POTASSIUM 50 MG TABLET PO SCH (09:42)
--- NOTE | 2021-06-03 10:32 | RAD REPORT ---
EXAM DESCRIPTION: CT - Abdomen Pelvis W Contrast - 06/03/2021 10:17 am CLINICAL HISTORY: Abdominal pain. COMPARISON: May 31, 2021 TECHNIQUE: Computed axial tomography of the abdomen and pelvis was obtained. 100 cc Isovue-300 is ad ministered intravenously. Oral contrast was given. All CT scans are performed using dose optimization technique as appropriate and may include automated exposure control or mA/KV adjustment according to patient size. FINDINGS: Mild to moderate stranding is present adjacent to distal descending/ proximal sigmoid colon. No extra luminal air seen. No abscess. Mild worsening when compared to the prior examination. No other significant change IMPRESSION: Mild to moderate left diverticulitis mildly worsened from the prior exam
[2021-06-03] MEDS ORDERED: METRONIDAZOLE 250mg IVPB 250 MG/50 ML BAG IV ONE (13:00)
[2021-06-03 17:00] VITALS: BP 147/75; TEMP 97.8
[2021-06-03] MEDS ORDERED: METRONIDAZOLE 500mg IVPB 500 MG/100 ML BAG IV SCH (17:00)
--- NOTE | 2021-06-03 18:14 | P.DS ---
Admission Date: 05/31/21 Discharge Date: 06/03/21 Primary Care Provider: Dr. Tillman Disposition: ROUTINE DISCHARGE Discharge Condition: GOOD Reason for Admission: Diverticulitis Consultations: GI - Dr. Melton Procedures: Problem List: acute diverticulitis; h/o diverticulitis h/o prostate cancer hypothyroidism HTN HLD Brief History of Present Illness: 50-year-old male with past medical history of hypertension, hyperlipidemia, hypothyroidism, prostate cancer, diverticulosis who presented to the ED with complaints of left lower quadrant abdominal pain. He states the pain began this morning around 10:30 AM. He has had an episode of diverticulitis in the past. He states this pain feels worse than prior episode. He denies nausea, vomiting, blood in his stool, or fever. In the ED, labs significant for WBC 14.2, bands 11. CT abdomen pelvis with contrast showed mild acute diverticulitis of the distal descending colon without peridiverticular abscess. Patient was supposed to get colonoscopy outpatient after his last episode of diverticulitis however he has that on hold as is in the process of scheduling treatment for prostate cancer. Patient received morphine, Zofran, IV ciprofloxacin and Flagyl in the ED. He will be admitted for further treatment of acute diverticulitis. Hospital Course: Patient was found to have mildmoderate acute diverticulitis. He was treated with bowel rest, IV fluids, and pain medication. He had daily improvement of his symptoms. His diet was advanced to soft foods. All of which he tolerated without any worsening of his symptoms. His leukocytosis improved and normalized, he remained afebrile, and painless much more tolerable with p.o. pain medication. He was discharged with 12 more days of antibiotics, and a few days of pain medication. He was evaluated by GI during the hospitalization, and he is to follow-up with them in several weeks, likely to undergo colonoscopy in approximately 6 weeks. Advised to proceed with radiation prior to colonoscopy. Vital Signs/Physical Exam: Temp Pulse Resp BP Pulse Ox 97.8 F 94 H 18 147/75 H 99 06/03/21 16:00 06/03/21 16:00 06/03/21 16:00 06/03/21 16:00 06/03/21 16:00 Physical Exam: General: alert, NAD HEENT: EOMI, sclera anicteric Respiratory: Clear to auscultation bilaterally, Normal air movement Cardiovascular: Regular rate/rhythm, Normal S1 S2 Gastrointestinal: soft, mild tenderness in LLQ Integumentary: No rashes Neurological: Normal strength at 5/5 x4 extr Laboratory Data at Discharge: WBC 9.30 K/uL (4.3-10.9) 06/03/21 05:33 Hgb 13.4 g/dL (13.6-17.9) L 06/03/21 05:33 Hct 38.6 % (39.6-49.0) L 06/03/21 05:33 Plt Count 174 K/uL (152-406) D 06/03/21 05:33 Sodium 139 mmol/L (136-145) 06/03/21 05:33 Potassium 4.2 mmol/L (3.5-5.1) 06/03/21 05:33 BUN 6 mg/dL (7-18) L 06/03/21 05:33 Creatinine 0.88 mg/dL (0.55-1.3) 06/03/21 05:33 Glucose 117 mg/dL (74-106) H 06/03/21 05:33 Phosphorus 3.0 mg/dL (2.5-4.9) 06/01/21 04:33 Magnesium 2.3 mg/dL (1.8-2.4) 06/03/21 05:33 Total Bilirubin 0.6 mg/dL (0.2-1.0) 06/02/21 05:35 AST 11 U/L (15-37) L 06/02/21 05:35 ALT 27 U/L (12-78) 06/02/21 05:35 Alkaline Phosphatase 63 U/L (45-117) 06/02/21 05:35 Triglycerides 68 mg/dL (<150) 06/01/21 04:33 Cholesterol 157 mg/dL (<200) 06/01/21 04:33 HDL Cholesterol 44 mg/dL (40-60) 06/01/21 04:33 Cholesterol/HDL Ratio 3.57 06/01/21 04:33 Lipase 116 U/L (73-393) 05/31/21 20:57 Home Medications: Levothyroxine Sodium [Levothyroxine] 1 tab PO DAILY 10/13/20 Losartan Potassium [Cozaar] 1 tab PO DAILY 10/13/20 Metoprolol Tartrate [Lopressor*] 1 tab PO BID 10/13/20 Ciprofloxacin HCl 500 mg PO BID 12 Days #24 tablet 06/03/21 Hydrocodone 7.5/APAP 325 [[place] 7.5/325 mg] 1 tab PO Q8H PRN 4 Days #12 tab 06/03/21 metroNIDAZOLE [Flagyl] 500 mg PO Q8H 12 Days #36 tablet 06/03/21 New Medications: Ciprofloxacin HCl 500 mg PO BID 12 Days #24 tablet metroNIDAZOLE [Flagyl] 500 mg PO Q8H 12 Days #36 tablet Hydrocodone 7.5/APAP 325 [[place] 7.5/325 mg] 1 tab PO Q8H PRN 4 Days #12 tab PRN Reason: Pain Physician Discharge Instructions: Patient was found to have mildmoderate acute diverticulitis. He was treated with bowel rest, IV fluids, and pain medication. He had daily improvement of his symptoms. His diet was advanced to soft foods. All of which he tolerated without any worsening of his symptoms. His leukocytosis improved and normalized, he remained afebrile, and painless much more tolerable with p.o. pain medication. He was discharged with 12 more days of antibiotics, and a few days of pain medication. He was evaluated by GI during the hospitalization, and he is to follow-up with them in several weeks, likely to undergo colonoscopy in approximately 6 weeks. Advised to proceed with radiation prior to colonoscopy. Diet: [place] Activity: Ad reji Followup: Reji Tillman MD [Primary Care Provider] - (Call to schedule appointment) Time spent managing pt's care (in minutes): 45
== END 2021-06-03 16:45 | disposition home or self-care (01) | DRG 872 ==
LOC: ER 20:22 → 2ND 23:01
PROVIDERS: ADMIT Hospitalist; ATTEND Hospitalist
DX: A41.9 Sepsis, unspecified organism (principal); K57.32 Diverticulitis of large intestine without perforation or abscess without bleeding; E03.9 Hypothyroidism, unspecified; I10 Essential (primary) hypertension; E78.5 Hyperlipidemia, unspecified; Z85.46 Personal history of malignant neoplasm of prostate; Z20.822 Contact with and (suspected) exposure to COVID-19
CPT/HCPCS: 36415; 74177; 80048; 80053; 80061; 80076; 81003; 83690; 83735; 84100; 84145; 84439; 84443; 85025; 96365; 96366; 96375; 99285; J0744; J1170; J1650; J2405; J3010; J7030; J7799; Q9967; U0003

== ENCOUNTER → 2023-04-13 | Emergency (ER) | payer BC ==
[~2023-04-13] MED LIST: HYDROMORPHONE HCL 1 MG/ML INJ ONE; KETOROLAC 30 MG/ML INJ ONE; ONDANSETRON 4 MG/2 ML VIAL ONE
--- NOTE | 2023-04-13 10:50 | RAD REPORT ---
EXAM DESCRIPTION: CT - Thorax Wo Con - 04/13/2023 10:38 am CLINICAL HISTORY: right scapula and ribs painful;Blunt chest trauma COMPARISON: No comparisons FINDINGS: Chest Wall: No suspicious thyroid nodules or pathologic lymphadenopathy. Lungs: Minimal atelectasis scarring in the medial right lung base. Pleura: No significant effusions or pneumothorax. Mediastinum/jazlyn: No pathologic lymphadenopathy. Pulmonary arteries/Aorta: Limited evaluation without contrast. No aortic aneurysm. Heart: No significant pericardial effusion. Normal heart size. Upper abdomen: No acute abnormality. Bones: Mildly displaced right lateral fifth rib fracture with approximately 1/2 shaft width of kirsten l displacement. All CT scans are performed using dose optimization technique as appropriate and may include automated exposure control or mA/KV adjustment according to patient size. IMPRESSION: Mildly displaced right lateral fifth rib fracture without underlying pneumothorax or oth er evidence of significant trauma.
[2023-04-13 11:04] LABS: Absolute Lymphocytes (CBC) 0.6 K/uL (0.7-4.9); Hematocrit 35.9 % (39.6-49.0); Lymphocytes % 4.8 % (15.3-44.8); MCV 88.9 fL (80-100); Platelets 170 thou/uL (152-406); RBC Red Blood Cell Count 4.04 M/uL (4.33-5.43)
[2023-04-13 11:26] LABS: Albumin 3.6 g/dL (3.4-5.0); Bilirubin Direct 0.1 mg/dL (0-0.2); Bilirubin Indirect, Calculated 0.3 mg/dL (0.2-0.8); Bilirubin Total 0.4 mg/dL (0.2-1.0); Protein, Total 7.1 g/dL (6.4-8.2); Troponin High Sensitivity 3.4 pg/mL (<58.9)
[2023-04-13 11:30] LABS: Potassium 4.1 mEq/L (3.5-5.1)
--- NOTE | 2023-04-13 11:42 | ER ---
Nurse's Notes [facility] Name: Fab Hinojosa Age: 52 yrs Sex: Male : 1970 Arrival Date: 04/13/2023 Time: 09:56 Bed 9 Private MD: Roe Sommer Diagnosis: Rib fracture right fifth rib, vasovagal syncope Presentation: 04/13 10:02 Chief complaint: Patient states: went to bed last night and i was coughing and choking iw and I think I coughed so hard I passed out, i fell and hit the corner of a hope chest , now has pain to right mid upper back , I can take a deep breath but it hurts when I put pressure on it. 10:05 Acuity: ANNELIESE 3 iw 12:17 Coronavirus screen: Vaccine status: Patient reports receiving the 2nd dose of the covid cp4 vaccine. Client denies travel out of the [place] in the last 14 days. Ebola Screen: Patient negative for fever greater than or equal to 101.5 degrees Fahrenheit, and additional compatible Ebola Virus Disease symptoms Patient denies exposure to infectious person. Patient denies travel to an Ebola-affected area in the 21 days before illness onset. No symptoms or risks identified at this time. Initial Sepsis Screen: Does the patient meet any 2 criteria? No. Patient's initial sepsis screen is negative. Does the patient have a suspected source of infection? No. Patient's initial sepsis screen is negative. Risk Assessment: Do you want to hurt yourself or someone else? Patient reports no desire to harm self or others. Onset of symptoms was April 12, 2023. 12:17 Method Of Arrival: Ambulatory cp4 Triage Assessment: 12:16 General: Behavior is. cp4 12:17 General: Appears distressed. cp4 Historical: - Allergies: 10:06 No Known Allergies; iw - PMHx: 10:05 Hypercholesterolemia; Hypertensive disorder; Hypothyroidism; PROSTATE CA; iw - PSHx: 10:05 Appendectomy; prostate removed; iw - Immunization history:: Adult Immunizations up to date. - Social history:: Smoking status: Patient denies any tobacco usage or history of. Screenin:14 [facility] ED Fall Risk Assessment (Adult) History of falling in the last 3 months, cp4 including since admission Yes- single mechanical fall (1 pt) Confusion or Disorientation No (0 pts) Intoxicated or Sedated No (0 pts) Impaired Gait No (0 pts) Mobility Assist Device Used No (0 pt) Altered Elimination No (0 pt) Score/Fall Risk Level 0 - 2 = Low Risk Oriented to surroundings, Maintained a safe environment, Educated pt \T\ family on fall prevention, incl call for assistance when getting out of bed, Assessed \T\ reinforced patient's understanding of fall precautions, Hourly rounding (assess needs \T\ fall precautionary measures) done. Abuse screen: Denies threats or abuse. Nutritional screening: No deficits noted. Tuberculosis screening: No symptoms or risk factors identified. Assessment: 12:14 General: Appears distressed. Pain: Pain currently is 10 out of 10 on a pain scale. cp4 Vital Signs: 10:06 BP 124 / 77; Pulse 97; Resp 16; Temp 98; Pulse Ox 98% on R/A; Weight 113.4 kg; Height 6 iw ft. 1 in. ; Pain 8/10; 10:06 Body Mass Index 32.98 (113.40 kg, 185.42 cm) iw 10:06 Pain Scale: Adult iw ED Course: 09:59 Patient arrived in ED. mr 09:59 Darrel Joseph MD is Attending Physician. sp3 09:59 Roe Sommer is Private Physician. mr 10:05 Triage completed. iw 10:07 Arm band placed on. iw 10:08 Blank Caceres is Primary Nurse. cp4 10:40 CT Chest Wo Con In Process Unspecified. EDMS 10:56 Basic Metabolic Panel Sent. cp4 10:56 CBC with Diff Sent. cp4 10:56 LFT's Sent. cp4 10:56 Troponin HS Sent. cp4 10:57 Initial lab(s) drawn, by me, sent to lab. EKG done, by ED staff, reviewed by Darrel Joseph MD. Inserted saline lock: 20 gauge in right antecubital area, using aseptic technique. Blood collected. 12:14 Bed in low position. Call light in reach. Side rails up X 1. Provided Education on: rib cp4 fracture and syncope. 12:14 No provider procedures requiring assistance completed. cp4 12:14 intact, bleeding controlled, No redness/swelling at site. Pressure dressing applied. cp4 Administered Medications: 10:56 Drug: Ketorolac IVP 30 mg IVP once Route: IVP; Site: left antecubital; cp4 12:14 Follow up: Response: No adverse reaction cp4 11:58 Drug: Ondansetron IVP 4 mg IVP once; over 2 minutes Route: IVP; Site: left antecubital; cp4 12:13 Follow up: Response: No adverse reaction cp4 11:59 Drug: HYDROmorphone IVP 1 mg IVP once Route: IVP; Site: left antecubital; cp4 12:13 Follow up: Response: No adverse reaction cp4 Medication: 12:14 VIS not applicable for this client. cp4 Outcome: 11:41 Discharge ordered by . sp3 12:14 Discharged to home via wheelchair, cp4 12:14 Condition: stable 12:14 Discharge instructions given to patient, Instructed on discharge instructions, follow up and referral plans. medication usage, Demonstrated understanding of instructions, follow-up care, medications, Prescriptions given X 2, 12:18 Patient left the ED. cp4 Signatures: Dispatcher [employer] EDTracie Lora, Tana Goncalves RN RN iw Patel, Setul, MD MD sp3 Blank Caceres cp4 Katherine Pompa
--- NOTE | 2023-04-13 11:42 | EDPHYS ---
Physician Documentation [facility] Name: Fab Hinojosa Age: 52 yrs Sex: Male : 1970 Arrival Date: 04/13/2023 Time: 09:56 Bed 9 Private MD: Roe Sommer ED Physician Darrel Joseph HPI: 04/13 10:34 This 52 yrs old Male presents to ER via Unassigned with complaints of Fall Injury. sp3 10:34 52-year-old male with history of hypertension, prior prostate cancer not on any current sp3 treatment, hyperlipidemia now presents to the ED with chief complaint right-sided scapula and rib pain secondary to a fall he incurred yesterday. Patient was coughing due to "something going down the wrong pipe" and he got up after that and had a syncopal episode and fell between 2 pieces of furniture. Patient had no prior prodrome to the syncope including chest pain, headache, shortness of breath or any other symptoms. He currently feels back to normal except for the pain in his right shoulder and back. He has never and currently denies he denies having any chest pain, shortness of breath, abdominal pain, nausea, vomiting, diarrhea, headache, fever, vertigo, or any other symptoms during the course of these events. Review of systems otherwise negative.. Historical: - Allergies: 10:06 No Known Allergies; iw - PMHx: 10:05 Hypercholesterolemia; Hypertensive disorder; Hypothyroidism; PROSTATE CA; iw - PSHx: 10:05 Appendectomy; prostate removed; iw - Immunization history:: Adult Immunizations up to date. - Social history:: Smoking status: Patient denies any tobacco usage or history of. ROS: 10:36 Constitutional: Negative for fever, chills, and weight loss, Eyes: Negative for injury, sp3 pain, redness, and discharge, Neck: Negative for injury, pain, and swelling, Respiratory: Negative for shortness of breath, cough, wheezing, and pleuritic chest pain, Abdomen/GI: Negative for abdominal pain, nausea, vomiting, diarrhea, and constipation, MS/Extremity: Negative for injury and deformity, Psych: Negative for depression, anxiety, suicide ideation, homicidal ideation, and hallucinations, Allergy/Immunology: Negative for hives, rash, and allergies, Endocrine: Negative for neck swelling, polydipsia, polyuria, polyphagia, and marked weight changes, Hematologic/Lymphatic: Negative for swollen nodes, abnormal bleeding, and unusual bruising, 10:36 All other systems are negative, Exam: 10:36 Constitutional: This is a well developed, well nourished patient who is awake, alert, sp3 and in no acute distress. Head/Face: Normocephalic, atraumatic. Eyes: Pupils equal round and reactive to light, extra-ocular motions intact. Lids and lashes normal. Conjunctiva and sclera are non-icteric and not injected. Cornea within normal limits. Periorbital areas with no swelling, redness, or edema. Neck: Trachea midline, no thyromegaly or masses palpated, and no cervical lymphadenopathy. Supple, full range of motion without nuchal rigidity, or vertebral point tenderness. No Meningismus. Cardiovascular: Regular rate and rhythm with a normal S1 and S2. No gallops, murmurs, or rubs. Normal PMI, no JVD. No pulse deficits. Respiratory: Lungs have equal breath sounds bilaterally, clear to auscultation and percussion. No rales, rhonchi or wheezes noted. No increased work of breathing, no retractions or nasal flaring. Abdomen/GI: Soft, non-tender, with normal bowel sounds. No distension or tympany. No guarding or rebound. No evidence of tenderness throughout. Skin: Warm, dry with normal turgor. Normal color with no rashes, no lesions, and no evidence of cellulitis. Neuro: Awake and alert, GCS 15, oriented to person, place, time, and situation. Cranial nerves II-XII grossly intact. Motor strength 5/5 in all extremities. Sensory grossly intact. Cerebellar exam normal. Normal gait. Psych: Awake, alert, with orientation to person, place and time. Behavior, mood, and affect are within normal limits. 10:36 Chest/axilla: Patient has pain to palpation on the ribs laterally into the posterior region. Also pain to palpation right scapula. Equal breath sounds present bilaterally with normal breath sounds. Cardiac exam is normal.. 11:06 ECG was reviewed by the Attending Physician. EKG demonstrates normal sinus rhythm at 90 sp3 bpm with normal intervals, normal QRS, normal axis, early J-point elevation and no ST/T changes to indicate any ischemia. Vital Signs: 10:06 BP 124 / 77; Pulse 97; Resp 16; Temp 98; Pulse Ox 98% on R/A; Weight 113.4 kg; Height 6 iw ft. 1 in. ; Pain 8/10; 10:06 Body Mass Index 32.98 (113.40 kg, 185.42 cm) iw 10:06 Pain Scale: Adult iw MDM: 10:17 Patient medically screened. sp3 10:37 Data reviewed: vital signs, nurses notes, lab test result(s), EKG, radiologic studies. sp3 ED course: 52-year-old male with PMH above now with single episode of likely vasovagal syncope's with subsequent fall and injury to his back and right ribs. Workup will include EKG, laboratory values and CT scan of the chest to assess scapula and ribs as well as pulmonary tissue. If workup is negative, we will safely discharge patient home to PCP follow-up. Ketorolac IV for pain control with subsequent narcotic addition if warranted.. 11:40 ED course: CT scan demonstrates fracture lateral fifth rib without pneumothorax or sp3 other underlying injury. Laboratory values and EKG are within normal limits and I am not highly suspicious for any cardiac event or other inciting event of the syncope. Patient likely had a vagal event secondary to the coughing. Patient had a negative echocardiogram recently as well. At this time we will safely discharge patient home on tramadol, ketorolac and general precautions for rib fracture as well as work note.. 04/13 10:23 Order name: Basic Metabolic Panel; Complete Time: 11:32 sp3 04/13 10:23 Order name: CBC with Diff; Complete Time: 11:58 sp3 04/13 10:23 Order name: LFT's; Complete Time: 11:32 sp3 04/13 10:23 Order name: Troponin HS; Complete Time: 11:32 sp3 04/13 11:11 Order name: CBC Smear Scan; Complete Time: 11:58 EDMS 04/13 10:23 Order name: CT Chest Wo Con; Complete Time: 10:52 sp3 04/13 10:23 Order name: EKG; Complete Time: 10:23 sp3 04/13 10:23 Order name: EKG - Nurse/Tech; Complete Time: 10:56 sp3 04/13 10:23 Order name: IV Saline Lock; Complete Time: 10:56 sp3 04/13 10:23 Order name: Labs collected and sent; Complete Time: 10:56 sp3 Administered Medications: 10:56 Drug: Ketorolac IVP 30 mg IVP once Route: IVP; Site: left antecubital; cp4 12:14 Follow up: Response: No adverse reaction cp4 11:58 Drug: Ondansetron IVP 4 mg IVP once; over 2 minutes Route: IVP; Site: left antecubital; cp4 12:13 Follow up: Response: No adverse reaction cp4 11:59 Drug: HYDROmorphone IVP 1 mg IVP once Route: IVP; Site: left antecubital; cp4 12:13 Follow up: Response: No adverse reaction cp4 Disposition Summary: 04/13/23 11:41 Discharge Ordered Notes: Location: Home sp3 Condition: Stable sp3 Diagnosis - Rib fracture right fifth rib, vasovagal syncope sp3 Followup: sp3 - With: Private Physician - When: Upon discharge from the Emergency Department - Reason: Wound Recheck Discharge Instructions: - Discharge Summary Sheet sp3 - Rib Fracture sp3 - Syncope sp3 Forms: - Medication Reconciliation Form sp3 - Thank You Letter sp3 - Antibiotic Education sp3 - Prescription Opioid Use sp3 - Patient Portal Instructions sp3 - Leadership Thank You Letter sp3 - Work release form cp4 Prescriptions: - Diclofenac Sodium 75 mg Oral Tablet Sustained Release - take 1 tablet ORAL route 2 times per day; 30 tablet; Refills: 0, Product sp3 Selection Permitted - Tramadol 50 mg Oral Tablet - take 1 tablet ORAL route every 8 hours as needed; 12 tablet; Refills: 0, sp3 Product Selection Permitted Signatures: Dispatcher [employer] Tana Bolton, LISA RN Darrel Vance MD MD sp3 Blank Caceres cp4
[2023-04-13 11:57] LABS: Blood Morphology Comment NOT SEEN (NOT SEEN); Platelet Estimate ADEQ; White Blood Cell Scan OK (OK)
[2023-04-13 13:52] VITALS: BP 124/77; TEMP 98; O2SAT 98
--- NOTE | 2023-04-14 17:26 | EKG ---
Test Date: 2023-04-13 Test Time: 10:48:11 Hha: LISA MEASUREMENT RESULTS: Intervals: Rate: 90 VT: 160 QRSD: 90 QT: 360 QTc: 440 [place]: P: 52 VT: 160 QRS: 57 T: 38 INTERPRETIVE STATEMENTS: Normal sinus rhythm Early repolarization Normal ECG No previous ECG available for comparison Electronically Signed On 04-14-23 17:23:42 DESIGN ENGINEERING SPECIALIST by Kenny Scott
== END ==
LOC: ER 09:56
DX: S22.31XA Fracture of one rib, right side, initial encounter for closed fracture (principal); R55 Syncope and collapse; I10 Essential (primary) hypertension
CPT/HCPCS: 93005; 85025; 80048; 36415; 80076; 84484; 71250; 96375; 96374; 99284; J1170; J2405